=== PATIENT | male | born 1965 | race Caucasian/White ===

== ENCOUNTER 2023-01-11 21:14 | Observation (INO) | payer MEDICAID, SELFPAY ==
[2023-01-11] VITALS (18 sets, daily range): BP systolic 128–179; BP diastolic 99–136; PULSE 110–167; RESP 16–34; TEMP 37.3–39.4; O2SAT 87–97
--- NOTE | 2023-01-11 21:16 | ED.GENADUL_ITS ---
Discharge Plan Disposition Patient Disposition: Admit to [facility] Discharge Details Clinical Impression: Acute lactic acidosis, Skin necrosis, Abscess of left arm, Abscess of right hand, Erythematous rash, Hyponatremia, Elevated LFTs, Hypoalbuminemia, Elevated INR, Thrombocytopenia, Acute respiratory failure with hypoxia Primary Care Provider: Conchita Parra ED Provider: Yoshi aCmpoverde [facility] General Date/Time Provider Initiated Documentation: 01/11/23 21:16 . HPI Narrative: HPI This is a 57-year-old annyd-hnol-vmemxsuf male with history of diabetes and hyperlipidemia arrived to the emergency department via private vehicle in the setting of an open sore on his left hand and a second open sore on his right hand. Patient reports that he initially went to his physician in [place] on 12/30/2022. He was having fevers. He subsequently started metformin, atorvastatin, and omeprazole. He noticed a blister on his left forearm and attempted to drain it himself. It subsequently began oozing. He also says that he bumped his right hand and developed a boil. He did not attempt to drain his right hand. He is concerned that he is having an allergic reaction. He denies routine alcohol but is a daily tobacco user. Last week he did have some epigastric discomfort but this has improved. Is having no chest pain. No shortness of breath. No dysuria. No frequency. No prior history of similar symptoms. Exam General: Well-appearing in no acute distress speaking in complete sentences. Head: Normocephalic, atraumatic. Eye: Extraocular eye movements intact. No conjunctival injection. No scleral icterus. Ear, nose, mouth, throat: Grossly normal inspection. Normal voice, handling secretions normally. No signs of mucositis. Moist mucous membranes. Neck: Trachea midline. Cardiovascular: Well-perfused distal extremities. Rapid regular rate Respiratory: Nonlabored respiration. Clear lungs bilaterally Gastrointestinal: Nondistended abdomen. Soft nontender Musculoskeletal: No edema. Moving all 4 extremities spontaneously. Skin: Patient has 2 lesions 1 each on his bilateral upper extremities. Left upper extremity: On the dorsal surface of the patient's proximal left forearm there is an approximately 4-1/2 cm x 3-1/2 cm abscess with surrounding necrotic tissue and a thin erythematous margin as shown in the photo follows: Distal to this confluent abscess there are mildly erythematous papules. Right hand: On the dorsal webspace of the right hand between the thumb and at the base of the right index finger there is an approximately 2 x 2 centimeter necrotic and swollen area. patient has an intact 2+ right radial pulse. Cap refill less than 2 seconds in the right fingertips. Sensation motor function intact in the right hand across the radial, median and ulnar nerve distributions of the right hand. Photo of right hand necrotic abscesses follows: On the patient's neck chest and back there is a confluent erythematous rash consistent of plaques that is blanching as shown in the photo follows: Neurologic: Alert and appropriate, no apparent acute deficits. Psychiatric: Mood and manner are appropriate. Grooming and personal hygiene are appropriate. MDM This is a chronically ill appearing 57-year-old normothermic but tachycardic qlamg-zjer-ndanhyfi male with left upper extremity abscess with surrounding necrotic area along with right hand fluctuance concerning for systemic infection in the setting of fevers and possible melanoma versus deeper space infection given surrounding necrosis. A wound culture has been sent to the patient's left arm abscess. Patient has not recently traveled to suggest zoonotic infection. 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 Patient does not have sex with multiple partners nor sex with men low certainly his presentation could represent new onset HIV so we will send HIV screening labs. Patient has not had contact with animals to suggest increased risk for tularemia. Differential for the patient's confluent erythematous blanching patches include erythema multiforme so we will send tick panel, sarcoidosis, exanthematous drug reaction. Patient is quite uncomfortable and so I am concerned for the possibility of necrotizing soft tissue infection. We will also add on clindamycin for toxin in addition in addition to piperacillin/tazobactam and vancomycin. No bullae to suggest Pike-Denys's nor TEM and no mucosal involvement. Presentation could also represent Hodgkin's lymphoma so we will check CBC. Patient has not recently been initiated on warfarin to suggest warfarin skin necrosis secondary to protein C and S deficiencies. We will obtain a urinalysis to assess for proteinuria. Induced from will provide 500 cc of crystalloid. 10:20 PM I spoke with Dr. Felix from general surgery who felt that the patient would benefit from a washout in the morning. We will keep patient n.p.o. Dr. Felix will place orders for hospitalization. 10:32 PM Lactic acidosis with a serum lactate of 1.9 mmol/L. Normal reassuring magnesium. Elevated INR at 1.5. Given elevated INR new onset malignancy is certainly a possibility. 10:45 PM Comprehensive metabolic panel showing mild hyponatremia. Normal renal function. Mild hyperglycemia. No anion gap. Not consistent with DKA. Hypoalbuminemia. Mildly elevated LFTs. Normal bilirubin. Normal calcium. Patient is not in septic shock so I did not repeat a lactate. 11:[address] on my preliminary interpretation does not show any obvious subcutaneous gas. CBC showing no leukocytosis. Mild normocytic anemia. Significant thrombocytope sumit with platelet count of 45 K.We will complete a CT chest abdomen pelvis without contrast to assess for the possibility of malignancy. I advised patient of plan for hospitalization. He did not become tachycardic and had had a coughing spell. We repeat a temperature which was 99.6 ?F. I signed patient out to my colleague, Dr. Brittney Bryant. His oxygen level is also 88% on room air. He is a smoker and has been coughing. We will provide 1 g of acetaminophen. Given concern for PE given oxygen saturation of 86% on tachycardia we will plan on placing the patient on 2 L nasal cannula. I have also ordered a CT angiogram of the patient's chest and a CT with contrast of his abdomen and pelvis to assess for PE and malignancy respectively. Chronic conditions affecting the care of the patient: Diabetes hyperlipidemia History obtained from an outside historian: N/A External record review: No [facility] EMR records [Diagnostic interpretations performed by me:] [Per my independent interpretation chest x-ray shows:] Concern for possible widened mediastinum and mediastinal lymphadenopathy for whi ch patient will undergo CT chest Medications: Antibiotics Social determinants of health affecting disposition: N/A Management discussed with: Dr. Felix general surgery Treatment/interventions considered: N/A Response to therapies provided: N/A [facility] All Active Problems (Updated 01/11/23 @ 23:45 by Yoshi Campoverde MD) Acute lactic acidosis (Acute) Skin necrosis (Acute) Abscess of left arm (Acute) Abscess of right hand (Acute) Erythematous rash (Acute) Hyponatremia (Acute) Elevated LFTs (Acute) Hypoalbuminemia (Acute) Elevated INR (Acute) Thrombocytopenia (Chronic) Acute respiratory failure with hypoxia (Acute) Social History Smoking/Tobacco Use Status: Current every day Smoking risk assessment performed?: Yes Alcohol Intake: current Alcohol Intake frequency: holidays/special occasions only Substance use type: does not use Do you feel safe at home: Yes Do you feel safe in your relationship?: Yes
--- OUTSIDE RECORDS SUMMARY | 2023-01-11 21:27 | XMS_ITS | Continuity of Care Document ---
Author Name Unknown Organization [facility] Address [address] [place] [address] [address] Care Court Interpreter Name Role Phone Conchita Parra Primary Care Physician [phone] Encounter [facility] Date(s): 01/08/23 - 01/09/23 [facility] [address] [place] [address] Discharge Disposition: Home or Self Care Attending Physician: Chris Mayen MD Admitting Physician: Chris Mayen MD Allergies, Adverse Reactions, Alerts No Known Medication Allergies Assessment and Plan Future Appointments Diagnostic Tests Pending * Blood Culture 01/08/23 * Blood Culture 01/08/23 * Generic Orderable [facility] 01/08/23 * Cytomegalovirus (CMV) DNA RT PCR, P [place] 01/09/23 * Cytomegalovirus Abs, IgM & IgG, S [place] 01/09/23 Future Scheduled Tests Laboratory* Fibrinogen Level 01/08/23 * PT/ INR 01/08/23 * Jackie-Abbasi Virus (EBV) PCR, Varies [place] 01/07/23 * Sputum Culture 01/07/23 * Urinalysis with Micro if Indicated and Culture if Indicated 12/28/22 * Pathology Smear Consult 01/08/23 Radiology* XR Chest 2 Views 12/28/22 * CT Chest/Abd/Pelvis w/ Contrast 12/28/22 Functional Status 01/08/23 Recent Travel History No recent travel Other exposure to Infectious Disease Non e Immunizations Given and Recorded Vaccine Date Status Refusal Reason zoster vaccine, inactivated 03/26/22 Given SARS-CoV-2 mRNA (tozinameran 12y+) bival 03/26/22 Given SARS-CoV-2 (COVID-19) mRNA-1273 vaccine 03/17/21 R ecorded SARS-CoV-2 (COVID-19) mRNA-1273 vaccine 08/21/20 R ecorded SARS-CoV-2 (COVID-19) mRNA-1273 vaccine 07/25/20 R ecorded Medications Albuterol (Eqv-ProAir HFA) 90 mcg/inh inhalation aerosol 2 puffs, Inhale, every 4 hr, PRN shortness of breath, # 1 EA, 2 Refill(s), Pharmacy: [facility] #[id number] Start Date: 12/28/22 Status: Ordered atorvastatin 10 mg oral tablet 10 mg = 1 tab, Oral, Daily, # 90 tab, 2 Refill(s), Pharmacy: [place] [address], 163, cm, 12/28/22 18:59:00 EDT, Height/Length Dosing, 96.25, kg, 12/28/22 19:00:00 EDT, Weight Dosing Start Date: 12/31/22 Status: Ordered doxycycline hyclate 100 mg oral delayed release tablet 100 mg = 1 tab, Oral, BID, X 21 days, # 42 tab, 0 Refill(s), 01/30/23 2:28:00 AM CDT, Pharmacy: [place] [address], 163, cm, 01/08/23 21:36:00 EDT, Height/Length Dosing, 95, kg, 01/08/23 21:36:00 EDT, Weight Dosing Start Date: 01/09/23 Stop Date: 01/30/23 Status: Ordered glucometer glucometer, Once a day testing NIDDM E11.9, Supply, See instructions, # 1 EA, 0 Refill(s), Pharmacy: [place] [address] Start Date: 01/01/23 Status: Ordered lancets lancets, one a day testing NIDDM E11.9, Supply, See instructions, # 100 EA, 3 Refill(s), Pharmacy: [place] [facility] [address] Start Date: 01/05/23 Status: Ordered metFORMIN 500 mg oral tablet 500 mg = 1 tab, Oral, BID, with meals, # 180 tab, 2 Refill(s), Pharmacy: [place] [address], 163, cm, 12/28/22 18:59:00 EDT, Height/Length Dosing, 96.25, kg, 12/28/22 19:00:00 EDT, Weight Dosing Start Date: 12/31/22 Status: Ordered omeprazole 40 mg oral delayed release capsule 40 mg = 1 cap, Oral, Daily, # 30 cap, 2 Refill(s), Pharmacy: [facility] #[id number] Start Date: 12/28/22 Status: Ordered test strips test strips, Once a day testing NIDDM E11.9, Supply, See instructions, # 100 EA, 3 Refill(s), Pharmacy: [id number] Start Date: 01/01/23 Status: Ordered Problem List Condition Confirmation Course Effective Dates Status H ealth Status Informant Abdominal pain Confirmed Active Anemia Confirmed Active Chest pain 1 Confirmed Active Dyslipidemia Confirmed Active Dyspnea on exertion Confirmed Active Early satiety Confirmed Active Hypertension Confirmed Active Elevated liver enzymes Confirmed Active Nicotine dependence Confirmed Active Night sweats Confirmed Active Obesity Confirmed Active Overactive bladder 2 Confirmed Active Pain in lower limb 3 Confirmed Active Fever of unknown origin Confirmed Active T2DM (type 2 diabetes mellitus) Confirmed Active Unintentional weight loss Confirmed Active 1 Intermittent; per new patient packet. 2Frequent urge; per new patient packet. 3Not specified; per new patient packet. Results Laboratory List Name Date Urinalysis with Micro if Indicated and C ulture if Indicated 01/09/23 .Manual Differential (NCTY) 01/08/23 Bilirubin Direct 01/08/23 C-Reactive Protein (CRP) 01/08/23 CBC w/ Diff 01/08/23 Comprehensive Metabolic Panel (CMP) 01/08 Creatine Kinase (CK) 01/08/23 D-Dimer 01/08/23 Ferritin 01/08/23 Fibrinogen Level 01/08/23 GGT 01/08/23 Lactic Acid 01/08/23 Lipase Level 01/08/23 PT/ INR 01/08/23 PTT 01/08/23 Procalcitonin 01/08/23 Sedimentation Rate (ESR) 01/08/23 Most recent to oldest [Reference Range]: 1 WBC [5.0-10.0 x10^3/mcL] 7.5 x10^3/mcL (01/08/23 10:25 PM) RBC [4.6-6.0 x10^6/mcL] 3.8 x10^6/mcL *LOW* (01/08/23 10:25 PM) Segs Man [40-75 %] 67 % (01/08/23 10:25 PM) Lymph Man [20-50 %] 20 % (01/08/23 10:25 PM) [place] Man [2-15 %] 3 % (01/08/23 10:25 PM) Eos Man [1-6 %] 1 % (01/08/23 10:25 PM) Prothrombin Time [9.0-11.0 seconds] 15.0 seconds *HI* (01/08/23 10: PM) INR 1.5 1 *NA* (01/08/23 10: PM) BUN [7-18 mg/dL] 20 mg/dL *HI* (01/08/23 10: PM) UA Color Yellow (01/09/23 12:32 AM) Glucose Level [74-106 mg/dL] 149 mg/dL *HI* (01/08/23 10: PM) Lymph, Atyp Man 1 % *NA* (01/08/23 10: PM) Potassium Level [3.5-5.1 mmol/L] 4.1 mmo l/L (01/08/23 10: PM) MCV [80.0-96.0 fL] 90.5 fL (01/08/23 10:25 PM) UA Urobilinogen Positive *ABN* (01/09/23 12:32 AM) RBC Morph Abnormal (01/08/23 10: PM) UA Bili [Negative] Negative (01/09/23 12:32 AM) CRP [<=10.0 mg/L] 250.0 mg/L *HI* (01/08/23 10: PM) UA Ketones Negative (01/09/23 12:32 AM) AST [15-37 unit/L] 148 unit/L *HI* (01/08/23 10:25 PM) ALT [16-63 unit/L] 262 unit/L *HI* (01/08/23 10: PM) MCHC [31.0-35.0 g/dL] 33.9 g/dL (01/08/23 10:25 PM) Sodium Level [136-145 mmol/L] 130 mmol/L *LOW* (01/08/23 10: PM) UA Leuk Est Negative (01/09/23 12:32 AM) UA Nitrite Negative (01/09/23 12:32 AM) UA Glucose [Negative] Negative (01/09/23 12:32 AM) Hct [41.0-51.0 %] 34.2 % *LOW* (01/08/23 10:25 PM) Lipase Level [16-77 unit/L] 25 unit/L 2 (01/08/23 10:25 PM) Partial Thromboplastin Time [22-35 secon ds] 26 seconds 3 (01/08/23 10:25 PM) Calcium Level [8.5-10.1 mg/dL] 8.2 mg/dL *LOW* (01/08/23 10:25 PM) Albumin Level [3.4-5.0 g/dL] 2.3 g/dL *LOW* (01/08/23 10:25 PM) Protein Total [6.4-8.2 g/dL] 6.9 g/dL (01/08/23 10:25 PM) UA Protein Negative (01/09/23 12:32 AM) MCH [26.0-32.0 pg] 30.7 pg (01/08/23 10:25 PM) Bilirubin Total [0.2-1.0 mg/dL] 0.7 mg/d L (01/08/23 10:25 PM) Hgb [14.0-18.0 g/dL] 11.6 g/dL *LOW* (01/08/23 10:25 PM) NRBC Man 1 % *NA* (01/08/23 10:25 PM) Alk Phos [46-146 unit/L] 82 unit/L (01/08/23 10:25 PM) UA Blood Negative (01/09/23 12:32 AM) Band Man [0-5 %] 1 % (01/08/23 10:25 PM) UA Spec Grav 1.010 *NA* (01/09/23 12:32 AM) Ferritin Level [26-388 ng/mL] 4610 ng/mL *HI* (01/08/23 10:25 PM) Polychrom Rare (01/08/23 10:25 PM) Bilirubin Direct [0.00-0.20 mg/dL] 0.28 mg/dL *HI* (01/08/23 10:25 PM) Platelets [130-450 x10^3/mcL] 55 x10^3/m cL *LOW* (01/08/23 10:25 PM) CO2 [21-32 mmol/L] 27 mmol/L (01/08/23 10:25 PM) Lactic Acid Lvl [0.7-2.0 mmol/L] 1.3 mmo l/L (01/08/23 10:25 PM) GGT [15-85 unit/L] 146 unit/L *HI* (01/08/23 10:25 PM) UA pH 5.5 *NA* (01/09/23 12:32 AM) eGFR Non-AA [>=60] 77 (01/08/23 10:25 PM) eGFR AA [>=60] 77 (01/08/23 10:25 PM) Fibrinogen Level [200-400 mg/dL] 294 mg/ dL (01/08/23 10:25 PM) UA Appear Clear (01/09/23 12:32 AM) Chloride Level [98-107 mmol/L] 94 mmol/L *LOW* (01/08/23 10:25 PM) Procalcitonin [0.00-0.50 ng/mL] 0.54 ng/ mL *HI* (01/08/23 10:25 PM) RDW-CV [11.5-14.5 %] 14.1 % (01/08/23 10:25 PM) Smudge Cells Small (01/08/23 10:25 PM) Slide Review Man Diff (01/08/23 10:25 PM) Abs Neut Man 5.1 x10^3/mcL *NA* (01/08/23 10:25 PM) Immature Cells 7 *NA* (01/08/23 10:25 PM) Creatinine Level [0.70-1.30 mg/dL] 1.11 mg/dL (01/08/23 10:25 PM) Baso Man [0-1 %] 0 % (01/08/23 10:25 PM) D Dimer, (Quant.) [0.00-0.50 mg/L] >30.0 0 mg/L 4, 5 *HI* (01/08/23 10:25 PM) CK [39-308 unit/L] 42 unit/L (01/08/23 10:25 PM) ESR, Westergren [0-20 mm/hr] 33 mm/hr *HI* (01/08/23 10:25 PM) 1Interpretive Data: INR 2-2.5 Prophylaxis: Short term DVT INR 2-3 Prophylaxis: hip and femur surgery Therapy: DVT (3 mos) PE (3-6 mos) 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 emb post ME Mitral Stenosis with emboli (vine fruit farming supervisor) Tissue prosthetic valves (3 mos min) INR 3-4.5 Therapy: recurrent DVT, PE (vine fruit farming supervisor) Prosthetic heart valves (vine fruit farming supervisor) 2Interpretive Data: Effective 01/29/22, [facility] has switched to a revised Lipase test.Note new ReferenceRange. 3Interpretive Data: NEW reagent effective 01/13/2022- Therapeutic Heparin Reference Range (0.3-0.7 effective anti-Xa level) 40-70 seconds Range (0.3-0.7 effective anti-Xa level) 40-70 seconds NEW reagent effective 01/13/2022- Therapeutic Heparin Reference Range (0.3-0.7 effective anti-Xa level) 40-70 seconds. 4Result Comment: Manual entry error 5Interpretive Data: Exclusion of PE: Effective December 30, 2011 a new D-Dimer assay [RadMitANCE] is being implemented, this test has a new reference range <0.50 mg/L FEU. This assay was evaluated in a multi-center study to validate the exclusion of PE using fresh specimens collected from 701 consecutive patients presenting in the ED with suspected PE. Study patients were evaluated using the Wells' rules to estimate high, moderate or low probability of PE, a D-Dimer result of <0.50 mg/L FEU was considered negative and a D-Dimer result >/= 0.50 was considered positive for PE. Vital Signs Most recent to oldest [Reference Range]: 1 2 3 Temperature Temporal Artery [36-38 Deg C] 36.9 Deg C (01/09/23 3:01 AM) 37.6 Deg C (01/08/23 9:31 PM) Temperature Temporal Artery (DegF) [97.3-100 Deg F] 98.42 Deg F (01/09/23 3:01 AM) Peripheral Pulse Rate [60-100 bpm] 80 bpm (01/09/23 3:01 AM) 82 bpm (01/09/23 2:37 AM) 78 bpm (01/09/23 2:06 AM) Respiratory Rate [12-24 br/min] 18 br/min (01/08/23 11:13 PM) 18 br/min (01/08/23 10:34 PM) 22 br/min (01/08/23 9:31 PM) Blood Pressure [90-140/60-90 mmHg] 118/69mmHg (01/09/23 3:01 AM) 103/73mmHg (01/09/23 2:37 AM) 97/55mmHg (01/09/23 1:09 AM) Weight Dosing 95.00 kg (01/08/23 9:36 PM) Weight Estimated 95.00 kg (01/08/23 9:31 PM) Height/Length Dosing 163.000 cm (01/08/23 9:36 PM) Height/Length Estimated 163.000 cm (01/08/23 9:31 PM) Social History Social History Type Response Tobacco Current everyday tob acco user Tobacco Use:. 1/2 to 1 packs per day per day. Sex Male EKG study * Event Display: Telemetry Strips Please click on link to view image. Physician Emergency department Note * Chris Mayen MD: PERFORM Event Display: ED Note Physician Authored Date: [id number] MARIA INES YAO :1965 Age:57 years Sex:Male Visit Date:01/08/2023 Primary Care Physician: Conchita Parra RESEARCH NUTRITIONIST HPI 57-year-old obese male smoker with a history of DM II (metformin), HLD (atorvastatin), GERD, and RAD (as needed albuterol) presents for evaluation of approximately 3 weeks of daily fevers that began at approximately 3 PM and apparently break overnight but are NSAID responsive, generalized malaise, right upper quadrant pain, 30 pounds weight loss, and now a rash palm and sole sparing of several days that began initially as a pimple-like lesion on his left forearm before progressing to a necroticulcer with some involvement on the right hand now with diffuse, predominantly anterior chest involvement and mild fascial involvement. 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 While the patient goes camping, he is not otherwise an avid outdoorsman, no gardening, fish tanks, IVDU, back pain, headache, or travel. Patient denies change in stool caliber or color. No apparent change in urination.Drinks 1-2 drinks of alcohol weekly. ?? Recent labs notable for: Date WBC Hb PLT Na K AST ALT ESR CRP D-dimer 09/23/2021 6.9 16.7 222 137 4.5 ? 12/28/2022 6.3 13.7 132 137 4.1 41 109 ? >30 01/08/2023 7.2 12.4 63 132 4.3 126 267 37 245.2 >30 ? M/S/F/SocHx notable for: please see HPI; remainder reviewed with patient and in chart.? ROS: Negative constitutional, eye, cardiovascular, pulmonary, GI, , MSK, skin, neurologic, psychiatric, endocrine unless noted in the HPI. ?? Exam HR 111, RR 22, BP 151/73, T 37.1?C, SaO2 92% on room air.?? Gen:??Pleasant, non-toxic appearing, resting comfortably. HEENT: NC, AT, PEERL, EOMI. Resp: Clear to auscultation bilaterally, normal work of breathing, no accessory muscle usage. Card: Regular rate and rhythm with no murmurs, rubs, or gallops, extremities warm and well perfused.?? GI: Non-tender to palpation throughout all quadrants, non-distended, no rebound or guarding. : No suprapubic tenderness to palpation. MSK: No visible deformities, strength and tone without visually appreciable deficit. Skin: Normal color with no visible lesions. Neuro: alert and oriented?3, no facial asymmetry, vision and hearing WNL. Psych: Mood and affect appropriate. ?? Labs?? WBC 7.5, Hb 11.6, platelets 55, lactic acid 1.3.?? Sodium 130, potassium 4.1, AST 148, ALT 262, lipase 25, BUN 20, glucose 149, GGT 146, ferritin 4610. CRP 250, CK 42, procalcitonin 0.54, ESR 33. PT 15.0, PT INR 1.5, PTT 26, fibrinogen 294, D-dimer >30. UA - negative nitrate, negative leukocyte Esterase, positive urobilinogen. ?? Imaging CXR: No acute cardiopulmonary abnormality.? CT chest/abdomen/pelvis: mild atypical pneumonia and bronchial inflammation/mucus considered. No abscess or acute inflammatory abnormality observed. No bowel obstruction. Numerous chronic findings asdescribed. Multiple sites of spinal canal stenosis and neuronal foraminal narrowing are present in t he lumbar spine. ?? MDM Previous chart, nursing note, labs, imaging, and vitals reviewed.?? A:??57-year-old obese male smoker with a history of DM II (metformin), HLD (atorvastatin), GERD, and RAD (as needed albuterol) presents for evaluation of approximately 3 weeks of daily fevers that began at approximately 3 PM and apparently break overnight but are NSAID responsive, generalized malaise, right upper quadrant pain, 30 pounds weight loss, and now a rash palm and sole sparing of several days that began initially as a pimple-like lesion on his left forearm before progressing to a necrotic ulcer with some involvement on the right hand now with diffuse, predominantly anterior chest involvement and mild fascial involvement.? Evaluation: the patient??has??a broad differential including tickborne diseases, viral infection, malignancy, vasculitis, malignancy with para-neoplastic syndrome, and critical electrolyte and/or hematologic abnormalities. ?? At the present time, favor a tickborne infection, however this is speculative and based on patientsgeographic risk factors, fevers, mild thrombocytopenia as well as mild liver enzyme elevations.??Tickborne, is likely a non-Rickettsii, rickettsial infection (e.g. Rickettsia Parkerri). Alternativelythe patient may have any number of viral etiologies or potentially an infectious or paraneoplastic syndrome.??CT chest/abdomen/pelvis. While the patient has multiple abnormalities as laboratory testing, none of these appear to be critical at the present time. The patient is elevated to gather is not felt to represent the but was rather ordered to evaluate for acute inflammation and clotting cascade breakdown products. ?? ED Course:?1 g acetaminophen IV and 1 L NS given following initial evaluation. Patient with significant symptomatic improvement. ?Initial laboratory studies consistent with the most recent trend of worsening anemia, thrombocytopenia, and elevated inflammatory markers, concern exists for a rickettsial infection given thenecrotic ulcers, however this is tentative at the present time. I discussed the case with the infectious disease physician on-call at [facility], will add on a CT chest/abdomen/pelvis as well as CMV and EBVtesting. Patient may follow-up with infectious disease at [facility] other outpatient clinic, acute follow-up today is on , patient's information was provided to [facility] for follow-up as well. ?100 mg p.o. doxycycline given in the ER. ?? Disposition: discharged with outpatient follow-up recommended, or ask for doxycycline provided. ?? Impression: fever, rash. ?? (please reference below for remainder of encounter information) ?? Dr. Acharya?? Electronically Signed on 01/09/23 03:27 AM Chris Mayen MD Emergency department Discharge instructions * Chris Mayen MD: PERFORM Event Display: ED Discharge Information Authored Date: [id number] MARIA INES YAO :1965 Age:57 years Sex:Male Visit Date:01/08/2023 Primary Care Physician: Conchita Parra NP Discharge Instructions We would like to thank you for allowing us to assist you with your healthcare needs. The following includes patient education materials and information regarding your injury/illness. ?? You were seen at [facility] for evaluation for evaluation of??a fever and rash. The time of your valuation the cause of your symptoms is unclear. There is a moderate possibility that yoursymptoms are due to a tick infection and you have been prescribed doxycycline that you should take twice daily for the next 21 days. Please follow up by phone on Wednesday with the [facility] infectious disease clinic urgent follow-up clinic. Please call?on Wednesday to schedule this follow-up.??Please read and follow all of the instructions below. ?? Please follow up with your primary care physician??in 3-4 days repeat evaluation for the care is needed. When calling for follow-up care, please make the office aware that this follow-up is from yourrecent emergency room visit.? Your care today was limited to identifying and treating emergent medical problems only. Many peoplehave subtle differences in their test results that require follow up with their outpatient physician(s) to correctly determine if this represents a normal variation or concerning abnormality with respect to your specific health.??The care given to you today was limited to identifying and treating emergent medical problems - you need to request a copy of all of your medical records from today's visit and follow up with your outpatient physician(s) to review both today's visit and your overall health. If you have any new symptoms or if you are at all concerned about your health please return immediately to the emergency department. ?? Prescriptions: If you are uninsured or have financial difficulties with filling your prescription(s), you may consider using a free pharmacy discount service such as [employer] ([employer]) or [employer] ([employer]). These services allow you to search for a medication on your phone (or computer) and obtain a coupon that usually has a significant discount from the list wade at a pharmacy. Your physician does not have a financial relationship with either of these services. You may also wish to speak with your physician to determine if lower cost prescriptions are possible. ? Discharge Vitals Temperature??(Temporal Artery) 98.4 ??F (36.9 ??C) Heart Rate??(Peripheral) 80 Respiratory Rate?? 18 Blood Pressure?? 118/69?? Height?? 64.17 in (163.000 cm) Weight??(Estimated) 209.48 lb (95.00 kg) Allergies No Known Medication Allergies What to Do Next Upcoming Scheduled Appointments Wednesday 9:00 AM EDT ?? With: Parish Garcia MD Where: [facility] [address] [place] [address] Status: Confirmed 2022 1:20 PM EDT ?? With: Conchita Parra NP Where: [facility] [place] [address] [place] [address] Status: Confirmed You were treated today on an emergency basis; it may be cantu to contact your primary care provider to notify them of your visit today. You may have been referred to your regular doctor or a specialist, please follow up as instructed. If your condition worsens or you can't get in to see the doctor, contact the Emergency Department. Medications What How Much When Why Instructions Next Dose New doxycycline (doxycycline hyclate 100 mg oral delayed release tablet) 1 tab Oral (given by mouth) 2 times a day Duration: 21 Days Pickup at [facility] Unchanged albuterol (Albuterol (Eqv-ProAir HFA) 90 mcg/ inh inhalation aerosol) 2 Puffs Inhale (breathe in) Every 4 hours as needed for shortness of breath Unchanged atorvastatin (atorvastatin 10 mg oral tablet) 1 tab Oral (given by mouth) Every day Unchanged Durable Medical Equipment for Prescription (glucometer) See instructions T2DM (type 2 diabetes mellitus) Once a day testing NIDDM E11.9 ?? Unchanged Durable Medical Equipment for Prescription (lancets) See instructions T2DM (type 2 diabetes mellitus) one a day testing NIDDM E11.9 ?? Unchanged Durable Medical Equipment for Prescription (test strips) See instructions T2DM (type 2 diabetes mellitus) Once a day testing NIDDM E11.9 ?? Unchanged metFORMIN (metFORMIN 500 mg oral tablet) 1 tab Oral (given by mouth) 2 times a day with meals ?? Unchanged omeprazole (omeprazole 40 mg oral delayed release capsule) 1 Capsules Oral (given by mouth) Every day Pharmacy Information [id number]: [address] [place] [address] [phone] Tests Performed Medications and Immunizations Administered Given acetaminophen, 1000 mg, IV Piggyback doxycycline monohydrate, 100 mg, Oral NS bolus, 1000 mL, IV Piggyback Lab Test Name Test Result Date/Time WBC 7.5 x10^3/mcL 01/08/2023 22:25 EDT RBC 3.8 x10^6/mcL 01/08/2023 22:25 EDT Hgb 11.6 g/dL 01/08/2023 22:25 EDT Hct 34.2 % 01/08/2023 22:25 EDT MCV 90.5 fL 01/08/2023 22:25 EDT MCH 30.7 pg 01/08/2023 22:25 EDT MCHC 33.9 g/dL 01/08/2023 22:25 EDT RDW-CV 14.1 % 01/08/2023 22:25 EDT Platelets 55 x10^3/mcL 01/08/2023 22:25 EDT Segs Man 67 % 01/08/2023 22:25 EDT Lymph Man 20 % 01/08/2023 22:25 EDT [place] Man 3 % 01/08/2023 22:25 EDT Eos Man 1 % 01/08/2023 22:25 EDT Baso Man 0 % 01/08/2023 22:25 EDT Band Man 1 % 01/08/2023 22:25 EDT Lymph, Atyp Man 1 % 01/08/2023 22:25 EDT NRBC Man 1 % 01/08/2023 22:25 EDT Abs Neut Man 5.1 x10^3/mcL 01/08/2023 22:25 EDT Smudge Cells Small 01/08/2023 22:25 EDT RBC Morph Abnormal 01/08/2023 22:25 EDT Immature Cells 7 01/08/2023 22:25 EDT Polychrom Rare 01/08/2023 22:25 EDT Slide Review Man Diff 01/08/2023 22:25 EDT ESR, Westergren 33 mm/hr 01/08/2023 22:25 EDT Prothrombin Time 15.0 seconds 01/08/2023 22:25 EDT INR 1.5 01/08/2023 22:25 EDT Partial Thromboplastin Time 26 seconds 01/08/2023 22:25 EDT Fibrinogen Level 294 mg/dL 01/08/2023 22:25 EDT D Dimer, (Quant.) >30.00 mg/L 01/08/2023 22:25 EDT Sodium Level 130 mmol/L 01/08/2023 22:25 EDT Potassium Level 4.1 mmol/L 01/08/2023 22:25 EDT Chloride Level 94 mmol/L 01/08/2023 22:25 EDT CO2 27 mmol/L 01/08/2023 22:25 EDT Alk Phos 82 unit/L 01/08/2023 22:25 EDT AST 148 unit/L 01/08/2023 22:25 EDT ALT 262 unit/L 01/08/2023 22:25 EDT BUN 20 mg/dL 01/08/2023 22:25 EDT Glucose Level 149 mg/dL 01/08/2023 22:25 EDT Creatinine Level 1.11 mg/dL 01/08/2023 22:25 EDT eGFR AA 77 01/08/2023 22:25 EDT eGFR Non-AA 77 01/08/2023 22:25 EDT Calcium Level 8.2 mg/dL 01/08/2023 22:25 EDT Protein Total 6.9 g/dL 01/08/2023 22:25 EDT Albumin Level 2.3 g/dL 01/08/2023 22:25 EDT Bilirubin Total 0.7 mg/dL 01/08/2023 22:25 EDT Bilirubin Direct 0.28 mg/dL 01/08/2023 22:25 EDT GGT 146 unit/L 01/08/2023 22:25 EDT Ferritin Level 4610 ng/mL 01/08/2023 22:25 EDT Lactic Acid Lvl 1.3 mmol/L 01/08/2023 22:25 EDT Lipase Level 25 unit/L 01/08/2023 22:25 EDT CRP 250.0 mg/L 01/08/2023 22:25 EDT CK 42 unit/L 01/08/2023 22:25 EDT Procalcitonin 0.54 ng/mL 01/08/2023 22:25 EDT UA Color YELLOW. 01/09/2023 00:32 EDT UA Appear CLEAR. 01/09/2023 00:32 EDT UA Glucose NEGATIVE 01/09/2023 00:32 EDT UA Bili NEGATIVE 01/09/2023 00:32 EDT UA Ketones NEGATIVE 01/09/2023 00:32 EDT UA Spec Grav 1.010 01/09/2023 00:32 EDT UA Blood NEGATIVE 01/09/2023 00:32 EDT UA pH 5.5 01/09/2023 00:32 EDT UA Protein NEGATIVE 01/09/2023 00:32 EDT UA Urobilinogen 1.0 Uro 01/09/2023 00:32 EDT UA Nitrite NEGATIVE 01/09/2023 00:32 EDT UA Leuk Est NEGATIVE 01/09/2023 00:32 EDT Patient/Bill Checker Signature Patient Name:MAXIMILIANMARIA INES GRANADOS Masood I have received this information and my questions have been answered. Patient/Bill Checker Name: Patient/Bill Checker Signature: Relationship to Patient: Witness Name/Signature: Date: Electronically Signed on: 01/09/2023 03:29 EDTSigned by:RIAZ Emergency department Note * Carmita Rey H: PERFORM Event Display: ED Notes Authored Date: [id number] Patient Care team information Care Team Personnel Name: Conchita Parra NP Position: Physician Member Role: Informed Provider Address: Address: [place] [address]- Name: Elio Cross RN Position: Nurse Member Role: ED Nurse Name: Lalit Mccarthy RN Position: Nurse Member Role: ED Nurse Name: Chris Mayen MD Position: Physician Member Role: Attending Physician Care Team Related Persons Name: NILDA TOM Address: [facility] [address] [facility] [id number] Address: Home [address] [place], [place] [id number] Address: [address]ailing [address] [place] [phone]
--- OUTSIDE RECORDS SUMMARY | 2023-01-11 21:27 | XMS_ITS | Continuity of Care Document ---
Author Name Unknown Organization [facility] Address [address] [place] [address] Care Team Providers Care Centura Technical Lead Senior Developer Name Role Phone Conchita Parra Primary Care Physician [phone] [facility] 12/28/22 [facility] [address] [place] [address] Discharge Disposition: Home Allergies, Adverse Reactions, Alerts No Known Medication Allergies Assessment and Plan Future Appointments Future Scheduled Tests Laboratory* Urinalysis with Micro if Indicated and Culture if Indicated 12/28/22 Radiology* XR Chest 2 Views 12/28/22 * CT Chest/Abd/Pelvis w/ Contrast 12/28/22 Immunizations Given and Recorded Vaccine Date Status [...] breath, # 1 EA, 2 Refill(s), Pharmacy: [facility] #[id number] Start Date: 12/28/22 Status: Ordered omeprazole 40 mg oral delayed release capsule 40 mg = 1 cap, Oral, Daily, # 30 cap, 2 Refill(s), Pharmacy: [facility] #[id number] Start Date: 12/28/22 Status: Ordered Problem List Condition Confirmation Course Effective Dates Status H ealth Status Informant Abdominal pain Confirmed Active Chest pain 1 Confirmed Active Dyslipidemia Confirmed Active Dyspnea 2 Confirmed Active Dyspnea on exertion Confirmed Active Early satiety Confirmed Active Hypertension Confirmed Active Immunization due Confirmed Active Nicotine dependence Confirmed Active Night sweats Confirmed Active Obesity Confirmed Active Overactive bladder 3 Confirmed Active Pain in lower limb 4 Confirmed Active Prediabetes Confirmed Active Fever of unknown origin Confirmed Active Visit for suture removal Confirmed Active Unintentional weight loss Confirmed Active 1 Intermittent; per new patient packet. 2 Intermittent; per new patient packet. 3Frequent urge; per new patient packet. 4Not specified; per new patient packet. Social History Social History Type Response Tobacco Current everyday tob acco user Tobacco Use:. 1/2 to 1 packs per day per day. Sex Male Patient Care team information Care Team Personnel Name: Conchita Parra NP Position: Physician Member Role: Primary Care Physician Address: Address: [address] Care Team Related Persons Name: TAE YAO Address: Home [facility] [place], [place] [id number]
--- OUTSIDE RECORDS SUMMARY | 2023-01-11 21:27 | XMS_ITS | Continuity of Care Document ---
Author Name Unknown Organization [facility] Address [address] [place] [address] Care Team Providers Care Investigation Specialist Name Role Phone Conchita Parra Primary Care Physician Encounter [facility] Date(s): 01/08/23 - 01/08/[address] [address] Encounter Diagnosis Anemia(Discharge Diagnosis) - 01/08/23 Discharge Disposition: Home or Self Care Attending Physician: Conchita Parra NP Admitting Physician: Conchita Parra NP Referring Physician: Conchita Parra DOOR WORKER Allergies, Adverse Reactions, Alerts No Known Medication Allergies Assessment and Plan Future Appointments Diagnostic Tests Pending * Protein Electrophoresis, S (SPEP) UV 01/08/23 * Acute Hepatitis Profile, S FRONTENAC 01/08/23 * Lyme Antibody UV 01/08/23 * QuantiFERON-TB Gold Plus, WB FRONTENAC 01/08/23 * Syphilis Serology UV 01/08/23 * Anti Nuclear Ab (REBECA), IFA UV 01/08/23 * Anaplasma and Babesia Testing by PCR, WB UV 01/08/23 * HIV 1/2 Ag and Ab, 4th Generation UV 01/08/23 * Blood Culture 01/08/23 * Jackie-Abbasi Virus Profile, S FRONTENAC 01/08/23 * Blood Culture 01/08/23 Future Scheduled Tests Laboratory* Fibrinogen Level 01/08/23 * PT/ INR 01/08/23 * Jackie-Abbasi Virus (EBV) PCR, Varies FRONTENAC 01/07/23 * Sputum Culture 01/07/23 * Urinalysis [...] breath, # 1 EA, 2 Refill(s), Pharmacy: [facility] #[id number] Start Date: 12/28/22 Status: Ordered atorvastatin 10 mg oral tablet 10 mg = 1 tab, Oral, Daily, # 90 tab, 2 Refill(s), Pharmacy: [facility] [id number], 163, cm, 12/28/22 18:59:00 EDT, Height/Length Dosing, 96.25, kg, 12/28/22 19:00:00 EDT, Weight Dosing Start Date: 12/31/22 Status: Ordered doxycycline hyclate 100 mg oral delayed release tablet 100 mg = 1 tab, Oral, BID, X 21 days, # 42 tab, 0 Refill(s), 01/30/23 2:28:00 AM CDT, Pharmacy: [facility] 415, 163, cm, 01/08/23 21:36:00 EDT, Height/Length Dosing, 95, kg, 01/08/23 21:36:00 EDT, Weight Dosing Start Date: 01/09/23 Stop Date: 01/30/23 Status: Ordered glucometer glucometer, Once a day testing NIDDM E11.9, Supply, See instructions, # 1 EA, 0 Refill(s), Pharmacy: [facility] 415 Start Date: 01/01/23 Status: Ordered lancets lancets, one a day testing NIDDM E11.9, Supply, See instructions, # 100 EA, 3 Refill(s), Pharmacy: [id number] Start Date: 01/05/23 Status: Ordered metFORMIN 500 mg oral tablet 500 mg = 1 tab, Oral, BID, with meals, # 180 tab, 2 Refill(s), Pharmacy: [facility] 415, 163, cm, 12/28/22 18:59:00 EDT, Height/Length Dosing, 96.25, kg, 12/28/22 19:00:00 EDT, Weight Dosing Start Date: 12/31/22 Status: Ordered omeprazole 40 mg oral delayed release capsule 40 mg = 1 cap, Oral, Daily, # 30 cap, 2 Refill(s), [id number] Start Date: 12/28/22 Status: Ordered test strips test strips, Once a day testing NIDDM E11.9, Supply, See instructions, # 100 EA, 3 Refill(s), Pharmacy: [facility] [id number] Start Date: 01/01/23 Status: Ordered Problem List [...] patient packet. Results Laboratory List Name Date C-Reactive Protein (CRP) 01/08/23 CBC w/ Diff 01/08/23 Comprehensive Metabolic Panel (CMP) 01/08 Ferritin 01/08/23 Iron Level and TIBC 01/08/23 SARS-CoV-2 (COVID-19)/Flu/RSV (GeneXpert ) 01/08/23 Sedimentation Rate (ESR) 01/08/23 .Manual Differential (NCTY) 01/08/23 Most recent to oldest [Reference Range]: 1 WBC [5.0-10.0 x10^3/mcL] 7.2 x10^3/mcL (01/08/23 1:53 PM) RBC [4.6-6.0 x10^6/mcL] 4.0 x10^6/mcL *LOW* (01/08/23 1:53 PM) Segs Man [40-75 %] 80 % *HI* (01/08/23 1:53 PM) Lymph Man [20-50 %] 18 % *LOW* (01/08/23 1:53 PM) [place] Man [2-15 %] 0 % *LOW* (01/08/23 1:53 PM) Eos Man [1-6 %] 0 % *LOW* (01/08/23 1:53 PM) BUN [7-18 mg/dL] 19 mg/dL *HI* (01/08/23 1:53 PM) Glucose Level [74-106 mg/dL] 120 mg/dL *HI* (01/08/23 1:53 PM) Potassium Level [3.5-5.1 mmol/L] 4.3 mmo l/L (01/08/23 1:53 PM) MCV [80.0-96.0 fL] 91.0 fL (01/08/23 1:53 PM) RBC Morph Normal (01/08/23 1:53 PM) CRP [<=10.0 mg/L] 245.2 mg/L *HI* (01/08/23 1:53 PM) AST [15-37 unit/L] 126 unit/L *HI* (01/08/23 1:53 PM) ALT [16-63 unit/L] 267 unit/L *HI* (01/08/23 1:53 PM) MCHC [31.0-35.0 g/dL] 34.3 g/dL (01/08/23 1:53 PM) Sodium Level [136-145 mmol/L] 132 mmol/L *LOW* (01/08/23 1:53 PM) Hct [41.0-51.0 %] 36.2 % *LOW* (01/08/23 1:53 PM) Calcium Level [8.5-10.1 mg/dL] 8.2 mg/dL *LOW* (01/08/23 1:53 PM) Albumin Level [3.4-5.0 g/dL] 2.4 g/dL *LOW* (01/08/23 1:53 PM) Protein Total [6.4-8.2 g/dL] 7.1 g/dL (01/08/23 1:53 PM) Iron Sat [20-55 %] 11 % *LOW* (01/08/23 1:53 PM) MCH [26.0-32.0 pg] 31.2 pg (01/08/23 1:53 PM) Bilirubin Total [0.2-1.0 mg/dL] 0.6 mg/d L (01/08/23 1:53 PM) Hgb [14.0-18.0 g/dL] 12.4 g/dL *LOW* (01/08/23 1:53 PM) Alk Phos [46-146 unit/L] 90 unit/L (01/08/23 1:53 PM) Band Man [0-5 %] 0 % (01/08/23 1:53 PM) Ferritin Level [26-388 ng/mL] 4733 ng/mL *HI* (01/08/23 1:53 PM) Platelets [130-450 x10^3/mcL] 63 x10^3/m cL *LOW* (01/08/23 1:53 PM) CO2 [21-32 mmol/L] 27 mmol/L (01/08/23 1:53 PM) TIBC [250-450 mcg/dL] 153 mcg/dL *LOW* (01/08/23 1:53 PM) Iron [65-175 mcg/dL] 17 mcg/dL *LOW* (01/08/23 1:53 PM) eGFR Non-AA [>=60] 83 (01/08/23 1:53 PM) eGFR AA [>=60] 83 (01/08/23 1:53 PM) Chloride Level [98-107 mmol/L] 95 mmol/L *LOW* (01/08/23 1:53 PM) RDW-CV [11.5-14.5 %] 14.2 % (01/08/23 1:53 PM) Smudge Cells Small (01/08/23 1:53 PM) Slide Review Man Diff (01/08/23 1:53 PM) Abs Neut Man 5.8 x10^3/mcL *NA* (01/08/23 1:53 PM) Immature Cells 2 *NA* (01/08/23 1:53 PM) Creatinine Level [0.70-1.30 mg/dL] 1.04 mg/dL (01/08/23 1:53 PM) Employed in healthcare? No *NA* (01/08/23 1:53 PM) Symptomatic as defined by CDC? Yes *NA* (01/08/23 1:53 PM) Date of onset (Lab) 18-DEC-2022 *Unknown* (01/08/23 1:53 PM) SARS-CoV-2(Covid19)PCR(GXpert COVFLURSV) [Negative] Negative (01/08/23 1:53 PM) Flu A (GXpert COVFLURSV) [Negative] Nega tive (01/08/23 1:53 PM) RSV (GXpert COVFLURSV) [Negative] Negati ve (01/08/23 1:53 PM) Flu B (GXpert COVFLURSV) [Negative] Nega tive (01/08/23 1:53 PM) Baso Man [0-1 %] 0 % (01/08/23 1:53 PM) ESR, Westergren [0-20 mm/hr] 37 mm/hr *HI* (01/08/23 1:53 PM) Social History Social History Type Response Tobacco Current everyday tob acco user Tobacco Use:. 1/2 to 1 packs per day per day. Sex Male Patient Care team information Care Team Personnel Name: Conchita Parra NP Position: Physician Member Role: Informed Provider Address: Address: [place] [address]- Care Team Related Persons Name: NILDA TOM Address: Alternate [address] [facility] [id number] Address: Home [address] [place], [place] [id number] Address: Mailing [address] [place], [place] [id number]
--- OUTSIDE RECORDS SUMMARY | 2023-01-11 21:27 | XMS_ITS | Continuity of Care Document ---
Author Name Unknown Organization [facility] Address [address] [place] [address] Care Team Providers Care Brush Fabrication Supervisor Name Role Phone Conchita Parra Primary Care Physician Encounter [facility] Date(s): 03/27/22 - 03/27/22 [facility] [address] [place] [address] Discharge Disposition: Home or Self Care Attending Physician: Conchita Parra NP Admitting Physician: Conchita Parra NP Referring Physician: Conchita Parra COURT OPERATIONS CLERK Allergies, Adverse Reactions, Alerts No Known Medication Allergies Immunizations Given and Recorded Vaccine Date Status Refusal Reason zoster vaccine, inactivated 03/26/22 Given SARS-CoV-2 mRNA (tozinameran 12y+) bival 03/26/22 Given SARS-CoV-2 (COVID-19) mRNA-1273 vaccine 03/17/21 R ecorded SARS-CoV-2 (COVID-19) mRNA-1273 vaccine 08/21/20 R ecorded SARS-CoV-2 (COVID-19) mRNA-1273 vaccine 07/25/20 R ecorded Medications varenicline 0.5 mg oral tablet 0.5 mg = 1 tab, Oral, Daily, Days 1-3: 0.5 mg once daily. Days 4-7: 0.5 mg twice daily. Maintenance(day 8 and later): 1 mg twice daily, # 56 tab, 1 Refill(s), Pharmacy: [facility] #[id number] Start Date: 03/26/22 Status: Ordered Problem List Condition Confirmation Course Effective Dates Status Health St atus Informant Chest pain 1 Confirmed Active Dyslipidemia Confirmed Active Dyspnea 2 Confirmed Active Elevated blood pressure reading without diagnosis of hypertension Confirmed Active Hypertension Confirmed Active Immunization due Confirmed Active Nicotine dependence Confirmed Active Obesity Confirmed Active Overactive bladder 3 Confirmed Active Pain in lower limb 4 Confirmed Active Prediabetes Confirmed Active Visit for suture removal Confirmed Active 1 Intermittent; per new patient packet. 2 Intermittent; per new patient packet. 3Frequent urge; per new patient packet. 4Not specified; per new patient packet. Results Laboratory List Name Date Comprehensive Metabolic Panel (CMP) 03/12 10/01 Hemoglobin A1c 03/27/22 Lipid Panel 03/27/22 Most recent to oldest [Reference Range]: 1 BUN [7-18 mg/dL] 16 mg/dL (03/27/22 9:46 AM) Cholesterol Total [50-200 mg/dL] 203 mg/ dL *HI* (03/27/22 9:46 AM) LDL [0-130 mg/dL] 123 mg/dL (03/27/22 9:46 AM) Glucose Level [74-106 mg/dL] 109 mg/dL *HI* (03/27/22 9:46 AM) Potassium Level [3.5-5.1 mmol/L] 4.3 mmo l/L (03/27/22 9:46 AM) HDL [40-60 mg/dL] 35 mg/dL *LOW* (03/27/22 9:46 AM) AST [15-37 unit/L] 23 unit/L (03/27/22 9:46 AM) ALT [16-63 unit/L] 43 unit/L (03/27/22 9:46 AM) Sodium Level [136-145 mmol/L] 140 mmol/L (03/27/22 9:46 AM) Triglycerides [0-150 mg/dL] 225 mg/dL *HI* (03/27/22 9:46 AM) Calcium Level [8.5-10.1 mg/dL] 9.2 mg/dL (03/27/22 9:46 AM) Albumin Level [3.4-5.0 g/dL] 3.8 g/dL (03/27/22 9:46 AM) Protein Total [6.4-8.2 g/dL] 7.9 g/dL (03/27/22 9:46 AM) Bilirubin Total [0.2-1.0 mg/dL] 0.4 mg/d L (03/27/22 9:46 AM) Alk Phos [46-146 unit/L] 66 unit/L (03/27/22 9:46 AM) CO2 [21-32 mmol/L] 30 mmol/L (03/27/22 9:46 AM) eGFR Non-AA [>=60] 71 (03/27/22 9:46 AM) eGFR AA [>=60] 71 (03/27/22 9:46 AM) Hemoglobin A1c [4.0-6.0 %] 6.2 % *HI* (03/27/22 9:46 AM) Chloride Level [98-107 mmol/L] 103 mmol/ L (03/27/22 9:46 AM) Creatinine Level [0.70-1.30 mg/dL] 1.19 mg/dL (03/27/22 9:46 AM) Social History Social History Type Response Tobacco Current everyday tob acco user Tobacco Use:. 2 packs per day per day. Sex Male Patient Care team information Personnel Name: Conchita Parra NP Address: Address: [place], [place] [address]
--- OUTSIDE RECORDS SUMMARY | 2023-01-11 21:28 | XMS_ITS | Continuity of Care Document ---
Author Name Unknown Organization [facility] Address [address] [place] [address] Care Team Providers Care Data Report Analyst Name Role Phone Conchita Parra Primary Care Physician [facility] [address] [place] [address] Discharge Disposition: Home or Self Care Attending Physician: Conchita Parra NP Admitting Physician: Conchita Parra NP Referring Physician: Conchita Parra STRUCTURAL TECHNICIAN Allergies, Adverse Reactions, Alerts No Known Medication Allergies Assessment and Plan Future Appointments Diagnostic Tests Pending * Pathology Smear Consult 12/28/22 Future Scheduled Tests Laboratory* Urinalysis with Micro [...] breath, # 1 EA, 2 Refill(s), Pharmacy: [facility] #[id number] Start Date: 12/28/22 Status: Ordered omeprazole 40 mg oral delayed release capsule 40 mg = 1 cap, Oral, Daily, # 30 cap, 2 Refill(s), Pharmacy: [facility] #[id number] Start Date: 12/28/22 Status: Ordered Problem List [...] patient packet. Results Laboratory List Name Date .Urinalysis POCT 12/28/22 Urinalysis Microscopic 12/28/22 .Manual Differential (NCTY) 12/28/22 Amylase Level 12/28/22 Basic Metabolic Panel (BMP) 12/28/22 CBC w/ Diff 12/28/22 D-Dimer 12/28/22 GGT 12/28/22 Hemoglobin A1c 12/28/22 Hepatic Function Panel 12/28/22 Hepatitis C Ab w/Rflx to HCV RNA PCR [facility] 12/28/22 Lipase Level 12/28/22 Lipid Panel 12/28/22 NT- Pro BNP 12/28/22 PSA Screen 12/28/22 TSH w/ Rflx to Free T4 12/28/22 Most recent to oldest [Reference Range]: 1 WBC [5.0-10.0 x10^3/mcL] 6.3 x10^3/mcL (12/28/22 12:52 PM) RBC [4.6-6.0 x10^6/mcL] 4.5 x10^6/mcL *LOW* (12/28/22 12:52 PM) Segs Man [40-75 %] 65 % (12/28/22 12:52 PM) Lymph Man [20-50 %] 20 % (12/28/22 12:52 PM) [place] Man [2-15 %] 2 % (12/28/22 12:52 PM) Eos Man [1-6 %] 1 % (12/28/22 12:52 PM) BUN [7-18 mg/dL] 18 mg/dL (12/28/22 12:52 PM) Cholesterol Total [50-200 mg/dL] 175 mg/ dL (12/28/22 12:52 PM) UA WBC [0-3] 0-3 (12/28/22 12:56 PM) LDL [0-130 mg/dL] 121 mg/dL (12/28/22 12:52 PM) Glucose Level [74-106 mg/dL] 100 mg/dL (12/28/22 12:52 PM) Lymph, Atyp Man 1 % *NA* (12/28/22 PM) Potassium Level [3.5-5.1 mmol/L] 4.1 mmo l/L (12/28/22: PM) MCV [80.0-96.0 fL] 91.5 fL (12/28/22 12:52 PM) RBC Morph Normal (12/28/22 PM) HDL [40-60 mg/dL] 27 mg/dL *LOW* (12/28/22: PM) AST [15-37 unit/L] 41 unit/L *HI* (12/28/22: PM) Amylase Level [25-115 unit/L] 33 unit/L (12/28/22: PM) ALT [16-63 unit/L] 109 unit/L *HI* (12/28/22: PM) MCHC [31.0-35.0 g/dL] 33.4 g/dL (12/28/22: PM) Sodium Level [136-145 mmol/L] 137 mmol/L (12/28/22 12:52 PM) UA RBC [0-2] 0-2 (12/28/22 12:56 PM) Hct [41.0-51.0 %] 41.0 % (12/28/22 12: PM) UA Bacteria None Seen /HPF (12/28/22:56 PM) Lipase Level [16-77 unit/L] 28 unit/L 1 (12/28/22 12:52 PM) Triglycerides [0-150 mg/dL] 136 mg/dL (12/28/22 12:52 PM) Calcium Level [8.5-10.1 mg/dL] 8.9 mg/dL (12/28/22 12:52 PM) Albumin Level [3.4-5.0 g/dL] 3.1 g/dL *LOW* (12/28/22 12:52 PM) Protein Total [6.4-8.2 g/dL] 7.8 g/dL (12/28/22 12:52 PM) MCH [26.0-32.0 pg] 30.6 pg (12/28/22 12:52 PM) Bilirubin Total [0.2-1.0 mg/dL] 0.5 mg/d L (12/28/22 12:52 PM) Hgb [14.0-18.0 g/dL] 13.7 g/dL *LOW* (12/28/22 12: PM) Alk Phos [46-146 unit/L] 73 unit/L (12/28/22 12:52 PM) UA Mucous None Seen /HPF (12/28/22 12:56 PM) Band Man [0-5 %] 2 % (12/28/22 12:52 PM) Bilirubin Direct [0.00-0.20 mg/dL] 0.19 mg/dL (12/28/22 12:52 PM) Platelets [130-450 x10^3/mcL] 132 x10^3/ mcL (12/28/22 12:52 PM) CO2 [21-32 mmol/L] 28 mmol/L (12/28/22 12:52 PM) UA Squam Epithelial [None Seen] Rare (12/28/22 12:56 PM) TSH [0.358-3.740 mcIntlUnit/mL] 0.642 mc IntlUnit/mL (12/28/22 12:52 PM) GGT [15-85 unit/L] 118 unit/L *HI* (12/28/22 12:52 PM) eGFR Non-AA [>=60] 73 (12/28/22 12:52 PM) eGFR AA [>=60] 73 (12/28/22 12:52 PM) Hemoglobin A1c [4.0-6.0 %] 6.7 % *HI* (12/28/22 12:52 PM) NT-proBNP [0-125 pg/mL] 229 pg/mL *HI* (12/28/22 12:52 PM) Chloride Level [98-107 mmol/L] 99 mmol/L (12/28/22 12:52 PM) RDW-CV [11.5-14.5 %] 14.4 % (12/28/22 12:52 PM) Slide Review Man Diff (12/28/22 12:52 PM) UA Culture Ind?. Not Indicated (12/28/22 12:56 PM) UA Amorph Moderate /HPF (12/28/22 12:56 PM) Immature Cells 9 *NA* (12/28/22 12:52 PM) Method of Collect POC Clean Catch *NA* (12/28/22 12:56 PM) Specific [place], Ur POC 1.020 *NA* (12/28/22 12:56 PM) Specimen Color POC Dark Yellow *NA* (12/28/22 12:56 PM) Glucose, Urine POC [Negative] Negative (12/28/22 12:56 PM) Bilirubin, Urine POC [Negative] Positive *ABN* (12/28/22 12:56 PM) Ketones, Urine POC [Negative] Trace *ABN* (12/28/22 12:56 PM) Blood, Urine POC [Negative] Negative (12/28/22 12:56 PM) pH, Urine POC 6 *NA* (12/28/22 12:56 PM) Protein, Urine POC [Negative] 2+ *ABN* (12/28/22 12:56 PM) Urobilinogen, Urine POC Positive *ABN* (12/28/22 12:56 PM) Nitrite, Urine POC [Negative] Negative (12/28/22 12:56 PM) Leuk Esterase, Urine POC [Negative] Nega tive (12/28/22 12:56 PM) Clarity, Urine POC [Clear] Clear (12/28/22 12:56 PM) Creatinine Level [0.70-1.30 mg/dL] 1.16 mg/dL (12/28/22 12:52 PM) Hep C Antibody [facility] [Negative] Negative 3 *NA* (12/28/22 12:52 PM) PSA Total Screening [0.00-4.00 ng/mL] 2. 07 ng/mL 4 (9/18/23 12:52 PM) Baso Man [0-1 %] 0 % (12/28/22 12:52 PM) D Dimer, (Quant.) [0.00-0.50 mg/L] >30.0 0 mg/L 5 *HI* (12/28/22 12:52 PM) 1Interpretive Data: Effective 01/29/22, [facility] has switched to a revised Lipase test.Note new ReferenceRange. 3Result Comment: Test performed or referred by The [address] [id number] 4Interpretive Data: The testing method is an heterogeneous enzyme Immunoassay manufactured by [employer] and performed on the Paracosm system. Values obtained with different assay methods or kits may be different and cannot be used interchangeably. Test results cannot be interpreted as absolute evidence for the presence or absence of malignant disease. 5Interpretive Data: Exclusion of PE: Effective December 30, 2011 a new D-Dimer assay [INNOVANCE] is being implemented, this test has a [...] >/= 0.50 was considered positive for PE. Social History Social History Type Response Tobacco Current everyday tob acco user Tobacco Use:. 1/2 to 1 packs per day per day. Sex Male Patient Care team information Care Team Personnel Name: Conchita Parra NP Position: Physician Member Role: Primary Care Physician Address: Address: [place] [address]- Care Team Related Persons Name: TAE YAO Address: Home [address] [place], [place] [address]
--- OUTSIDE RECORDS SUMMARY | 2023-01-11 21:28 | XMS_ITS | Continuity of Care Document ---
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 Role Phone Conchita Parra Primary Care Physician [facility] Date(s[facility] 12/28/22 - 12/28/[address] [phone] [place] Encounter Diagnosis Chest pain(Discharge Diagnosis) - 12/28/22 Shortness of breath(Discharge Diagnosis) - 12/28/22 Night sweat(Discharge Diagnosis) - 12/28/22 Discharge Disposition: Home or Self Care Attending Physician: Beltran Back MD Admitting Physician: Beltran Back MD Allergies, Adverse Reactions, Alerts No Known Medication Allergies Assessment and Plan Future Appointments Future Scheduled Tests Laboratory* Urinalysis with Micro if Indicated and Culture if Indicated 12/28/22 Radiology* XR Chest 2 Views 12/28/22 * CT Chest/Abd/Pelvis w/ Contrast 12/28/22 Functional Status 12/28/22 Recent Travel History No recent travel Other [...] breath, # 1 EA, 2 Refill(s), Pharmacy: [facility] #[id number] Start Date: 12/28/22 Status: Ordered omeprazole 40 mg oral delayed release capsule 40 mg = 1 cap, Oral, Daily, # 30 cap, 2 Refill(s), Pharmacy: [facility] #[id number] Start Date: 12/28/22 Status: Ordered Mental Status 12/28/22 Eye Opening Response Sagrario Spontaneous ly Best Verbal Response Sagrario Oriented Best Motor Response [place] Obeys comman ds Sagrario Coma Score 15 Problem List Condition Confirmation Course Effective Dates [...] patient packet. Results Laboratory List Name Date CBC w/ Diff 12/28/22 Comprehensive Metabolic Panel 12/28/22 D-Dimer 12/28/22 NT- Pro BNP 12/28/22 SARS-CoV-2 (COVID-19) RNA (ID Now) Troponin-I 12/28/22 .Manual Differential (NCTY) 12/28/22 Most recent to oldest [Reference Range]: 1 WBC [5.0-10.0 x10^3/mcL] 7.1 x10^3/mcL (12/28/22 7:08 PM) RBC [4.6-6.0 x10^6/mcL] 4.5 x10^6/mcL *LOW* (12/28/22 7:08 PM) Segs Man [40-75 %] 54 % (12/28/22 7:08 PM) Lymph Man [20-50 %] 40 % (12/28/22 7:08 PM) [place] Man [2-15 %] 1 % *LOW* (12/28/22 7:08 PM) Eos Man [1-6 %] 0 % *LOW* (12/28/22 7:08 PM) BUN [7-18 mg/dL] 18 mg/dL (12/28/22 7:08 PM) Glucose Level [74-106 mg/dL] 108 mg/dL *HI* (12/28/22:08 PM) Potassium Level [3.5-5.1 mmol/L] 4.1 mmo l/L (12/28/22:08 PM) MCV [80.0-96.0 fL] 90.9 fL (12/28/22:08 PM) RBC Morph Normal (12/28/2208 PM) AST [15-37 unit/L] 62 unit/L *HI* (12/28/22: PM) ALT [16-63 unit/L] 130 unit/L *HI* (12/28/22:08 PM) MCHC [31.0-35.0 g/dL] 34.0 g/dL (12/28/22:08 PM) Troponin-I [0.0-76.2 pg/mL] 5.3 pg/mL (12/28/22:08 PM) Sodium Level [136-145 mmol/L] 135 mmol/L *LOW* (12/28/22:08 PM) Hct [41.0-51.0 %] 40.9 % *LOW* (12/28/22:08 PM) Calcium Level [8.5-10.1 mg/dL] 8.7 mg/dL (12/28/22:08 PM) Albumin Level [3.4-5.0 g/dL] 3.2 g/dL *LOW* (12/28/22:08 PM) Protein Total [6.4-8.2 g/dL] 8.0 g/dL (12/28/22:08 PM) MCH [26.0-32.0 pg] 30.9 pg (12/28/22:08 PM) Bilirubin Total [0.2-1.0 mg/dL] 0.7 mg/d L (12/28/22:08 PM) Hgb [14.0-18.0 g/dL] 13.9 g/dL *LOW* (12/28/22:08 PM) Alk Phos [46-146 unit/L] 71 unit/L (12/28/22 7:08 PM) Band Man [0-5 %] 1 % (12/28/22 7:08 PM) Platelets [130-450 x10^3/mcL] 124 x10^3/ mcL *LOW* (12/28/22 7:08 PM) CO2 [21-32 mmol/L] 28 mmol/L (12/28/22 7:08 PM) eGFR Non-AA [>=60] 75 (12/28/22 7:08 PM) eGFR AA [>=60] 75 (12/28/22 7:08 PM) NT-proBNP [0-125 pg/mL] 191 pg/mL *HI* (12/28/22 7:08 PM) Chloride Level [98-107 mmol/L] 97 mmol/L *LOW* (12/28/22 7:08 PM) RDW-CV [11.5-14.5 %] 14.4 % (12/28/22 7:08 PM) Slide Review Man Diff (12/28/22 7:08 PM) Abs Neut Man 3.9 x10^3/mcL *NA* (12/28/22 7:08 PM) Immature Cells 4 *NA* (12/28/22 7:08 PM) Creatinine Level [0.70-1.30 mg/dL] 1.13 mg/dL (12/28/22 7:08 PM) SARS-CoV-2 (COVID-19) RNA (ID Now) [Not Detected] Not Detected (12/28/22 7:08 PM) Baso Man [0-1 %] 0 % (12/28/22 7:08 PM) D Dimer, (Quant.) [0.00-0.50 mg/L] >30.0 0 mg/L 1, 2 *HI* (12/28/22 7:08 PM) 1Result Comment: Called to and verbally verified by Oni Ramires at 12/28/2022 19:59:45 EDT. 2Interpretive Data: Exclusion of PE: Effective December 30, [...] 3 Temperature Temporal Artery [36-38 Deg C] 37.6 Deg C (12/28/22 9:05 PM) 38.0 Deg C (12/28/22 6:44 PM) Temperature Temporal Artery (DegF) [97.3-100 Deg F] 99.68 Deg F (12/28/22 9:05 PM) Peripheral Pulse Rate [60-100 bpm] 78 bpm (12/28/22 10:18 PM) 84 bpm (12/28/22 9:05 PM) 90 bpm (12/28/22 8:28 PM) Heart Rate Monitored [60-100 bpm] 78 bpm (12/28/22 10:18 PM) 85 bpm (12/28/22 9:05 PM) 91 bpm (12/28/22 8:28 PM) Respiratory Rate [12-24 br/min] 22 br/min (12/28/22 10:18 PM) 22 br/min (12/28/22 9:05 PM) 20 br/min (12/28/22 8:28 PM) Blood Pressure [90-140/60-90 mmHg] 101/67mmHg (12/28/22 10:18 PM) 111/69mmHg (12/28/22 9:05 PM) 113/70mmHg (12/28/22 8:28 PM) Weight 96.25 kg (12/28/22 6:44 PM) Weight Dosing 96.25 kg (12/28/22 7:00 PM) Height 163.000 cm (12/28/22 6:44 PM) Height/Length Dosing 163.000 cm (12/28/22 6:59 PM) Body Mass Index 36.000 kg/m2 (12/28/22 6:44 PM) Social History Social History Type Response Tobacco Current everyday tob acco user Tobacco Use:. 1/2 to 1 packs per day per day. Sex Male Hospital Discharge Instructions Patient Education 12/28/2022 21:34:13 Fever, Adult Fever, Adult A fever is an increase in the body's temperature. It is usually defined as a temperature of 100.4??F (38??C) or higher. Brief mild or moderate fevers generally have no long-term effects, and they often do not need treatment. Moderate or high fevers may make you feel uncomfortable and can sometimes be a sign of a serious illness or disease. The sweating that may occur with repeated or prolonged fever may also cause a loss of fluid in the body (dehydration). Fever is confirmed by taking a temperature with a thermometer. A measured temperature can vary with: ??? Age. ??? Time of day. ??? Where in the body you take the temperature. Readings may vary if you place the thermometer: ??? In the mouth (oral). ??? In the rectum (rectal). ??? In the ear (tympanic). ??? Under the arm (axillary). ??? On the forehead (temporal). Follow these instructions at home: Medicines ??? Take over-the counter and prescription medicines only as told by your health care provider. Follow the dosing instructions carefully. ??? If you were prescribed an antibiotic medicine, take it as told by your health care provider. Donot stop taking the antibiotic even if you start to feel better. General instructions ??? Watch your condition for any changes. Let your health care provider know about them. ??? Rest as needed. ??? Drink enough fluid to keep your urine pale yellow. This helps to prevent dehydration. ??? Sponge yourself or bathe with room-temperature water to help reduce your body temperature as needed. Do not use ice water. ??? Do not use too many blankets or wear clothes that are too heavy. ??? If your fever may be caused by an infection that spreads from person to person (is contagious),such as a cold or the flu, you should stay home from work and public gatherings for at least 24 hours after your fever is gone. Your fever should be gone without the need to use medicines. Contact a health care provider if: ??? You vomit. ??? You cannot eat or drink without vomiting. ??? You have diarrhea. ??? You have pain when you urinate. ??? Your symptoms do not improve with treatment. ??? You develop new symptoms. ??? You develop excessive weakness. Get help right away if: ??? You have shortness of breath or have trouble breathing. ??? You are dizzy or you faint. ??? You are disoriented or confused. ??? You develop signs of dehydration, such as: ??? Dark urine, very little urine, or no urine. ??? Cracked lips. ??? Dry mouth. ??? Sunken eyes. ??? Sleepiness. ??? Weakness. ??? You develop severe pain in your abdomen. ??? You have persistent vomiting or diarrhea. ??? You develop a skin rash. ??? Your symptoms suddenly get worse. Summary ??? A fever is an increase in the body's temperature. It is usually defined as a temperature of 100.4??F (38??C) or higher. Moderate or high fevers can sometimes be a sign of a serious illness or disease. The sweating that may occur with repeated or prolonged fever may also cause dehydration. ??? Pay attention to any changes in your symptoms and contact your health care provider if your symptoms do not improve with treatment. ??? Take over-the counter and prescription medicines only as told by your health care provider. Follow the dosing instructions carefully. ??? If your fever is from an infection that may be contagious, such as cold or flu, you should stayhome from work and public gatherings for at least 24 hours after your fever is gone. Your fever should be gone without the need to use medicines. ??? Get help right away if you develop signs of dehydration, such as dark urine, cracked lips, dry mouth, sunken eyes, sleepiness, or weakness. This information is not intended to replace advice given to you by your health care provider. Make sure you discuss any questions you have with your health care provider. Document Revised: 08/19/2021 Document Reviewed: 08/19/2021 [employer] Patient Education ?? 2022 [email or web address]. Follow Up Care 12/28/2022 18:43:56 With:Follow up with primary care provider Address: When:1 to 2 weeks Physician Emergency department Note * Kristy Abdul MD: PERFORM Event Display: ED Note Physician Authored Date: [id number] MARIA INES YAO :1965 Age:57 years Sex:Male Visit Date:12/28/2022 Primary Care Physician: Conchita Parra NP Basic Information Time Seen: Kristy Abdul MD / 12/28/2022 19:38 Chief Complaint Pt sent by PCP for rule out blood clot after blood work today. Pt states SOB, intermittent chest pressure, headache and chills x two weeks History Of Present Illness: Patient reports he has had some upper abdominal chest pain??has been ongoing for a couple of weeks that he decided he should go to his primary care provider??to be checked out today his D-dimer was quite positive??greater than 30.0??and so he was sent here for further evaluation. ??Patient does report he has had some shortness of breath??and has felt fatigued over the last couple weeks quite up to par.?? Positive fever with night sweats he reports fevers up to several 100??he states??last nighthe woke up with a sweat. ??No ear nose or throat pain??no nausea no vomiting no diarrhea no extremity edema no family history positive smoking Review of Systems: see hpi for ros Physical Exam Vitals & Measurements T:??37.6?C ??(Temporal Artery)?? HR:??78??(Peripheral)?? HR:??78??(Monitored)?? RR:??22?? BP:??101/67?? SpO2:??93%?? HT:??163.000??cm?? WT:??96.25??kg?? BMI:??36.000?? Pain Score:??5?? O2 Therapy:??Room air?? General: Alert and oriented, well nourished,?No??acute distress Eye: PER?Normal??conjunctiva,??No??scleral icterus HENT: Normocephalic,??nontraumatic??Normal hearing Lungs: Clear to auscultation,?Non-labored?? respiration Heart:?Normal?? rate,?Regular??rhythm,?No??murmur,?No??gallop,?No??edema Chest: wall excursion wnl no abnormal movements no obvious deformities??no reproducible chest wall pain to palpation Abdomen: Soft, moderate tenderness epigastric area, non-distended,?Normal?? bowel sounds,?No??masses Musculoskeletal:?Normal?? range of motion and strength,?No??tenderness,?No??swelling Skin: Skin is warm, dry and pink,?No??rashes,?No??lesions Neurologic: Awake, alert and oriented X4 Psychiatric: Cooperative, appropriate mood and affect Procedure No Qualifying Data Assessment/Plan 1.??Chest pain??R07.9 Patient has had a CT chest CT abdomen and pelvis??as??patient's??chest discomfort seems to be epigastric in relation and does not seem to be??reproducible on exam with??chest palpation??patient does have an elevated D- dimer??that was also elevated here??CTA of the chest is reassuring there was no pneumonia seen I think patient likely has a virus??and expect patient should get better within the next week or 2 if not patient may need further testing??for his??night sweats and fever. 2.??Shortness of breath??R06.02 Patient's vital signs are stable here??CT chest is reassuring??expect things will improve there is no pneumonia on x-ray 3.??Night sweat??R61 Patient reports he gets??night sweats at night over the last few days expect this will improve??as his likely virus improves as well??however if continues he will need to see his primary care provider in follow-up. Orders: Review Orders for Potential Auths., 12/28/22 19:01:05 EDT Medication Reconciliation Unchanged albuterol (Albuterol (Eqv-ProAir HFA) 90 mcg/inh inhalation aerosol)2 Puffs Inhale (breathe in) every 4 hours as needed shortness of breath. Refills: 2. ?? omeprazole (omeprazole 40 mg oral delayed release capsule)1 Capsules Oral (given by mouth) every day. Refills: 2. Problem List/Past Medical History Ongoing Abdominal pain Chest pain Dyslipidemia Dyspnea Dyspnea on exertion Early satiety Fever of unknown origin Hypertension Immunization due Nicotine dependence Night sweats Obesity Overactive bladder Pain in lower limb Prediabetes Unintentional weight loss Visit for suture removal Historical No qualifying data Medication Administration Given Tylenol, 1000 mg, Oral Allergies No Known Medication Allergies Social History Alcohol Current, 1-2 times per week Electronic Cigarette/Vaping Electronic Cigarette Use: Never. Employment/School Employed Home/Environment Lives with Significant other. Nutrition/Health Diet: Regular. Substance Use Never Tobacco Current everyday tobacco user Tobacco Use:. 1/2 to 1 packs per day per day. Family History Cancer: Mother. Family history of breast cancer: Sister. Heart disease: Father. Pneumonia: Father. Family Member(s): ?? FATHER, at age: Unknown. Cause of : Family Member(s): ?? MOTHER, at age: Unknown. Cause of : Lab Results CBC and Differential?? LATEST RESULTS?? HISTORICAL RESULTS?? WBC?? 12/28/22 19:08?? 7.1?? 12/28/22?? 6.3?? RBC?? 12/28/22 19:08?? 4.5 ??Low?? 12/28/22?? 4.5 ??Low?? Hgb?? 12/28/22 19:08?? 13.9 ??Low?? 12/28/22?? 13.7 ??Low?? Hct?? 12/28/22 19:08?? 40.9 ??Low?? 12/28/22?? 41.0?? MCV?? 12/28/22 19:08?? 90.9?? 12/28/22?? 91.5?? MCH?? 12/28/22 19:08?? 30.9?? 12/28/22?? 30.6?? MCHC?? 12/28/22 19:08?? 34.0?? 12/28/22?? 33.4?? RDW-CV?? 12/28/22 19:08?? 14.4?? 12/28/22?? 14.4?? Platelets?? 12/28/22 19:08?? 124 ??Low?? 12/28/22?? 132?? Segs Man?? 12/28/22 19:08?? 54?? 12/28/22?? 65?? Lymph Man?? 12/28/22 19:08?? 40?? 12/28/22?? 20?? [place] Man?? 12/28/22 19:08?? 1 ??Low?? 12/28/22?? 2?? Eos Man?? 12/28/22 19:08?? 0 ??Low?? 12/28/22?? 1?? Baso Man?? 12/28/22 19:08?? 0?? 12/28/22?? 0?? Band Man?? 12/28/22 19:08?? 1?? 12/28/22?? 2?? Abs Neut Man?? 12/28/22 19:08?? 3.9? RBC Morph?? 12/28/22 19:08?? Normal?? 12/28/22?? Normal?? Immature Cells?? 12/28/22 19:08?? 4?? 12/28/22?? 9?? Slide Review?? 12/28/22 19:08?? Man Diff?? 12/28/22?? Man Diff? Coagulation?? LATEST RESULTS?? HISTORICAL RESULTS?? D Dimer, (Quant.)?? 12/28/22 19:08?? >30.00 ??High?? 12/28/22?? >30.00 ??High? Routine Chemistry?? LATEST RESULTS?? HISTORICAL RESULTS?? Sodium Level?? 12/28/22 19:08?? 135 ??Low?? 12/28/22?? 137?? Potassium Level?? 12/28/22 19:08?? 4.1?? 12/28/22?? 4.1?? Chloride Level?? 12/28/22 19:08?? 97 ??Low?? 12/28/22?? 99?? CO2?? 12/28/22 19:08?? 28?? 12/28/22?? 28?? Alk Phos?? 12/28/22 19:08?? 71?? 12/28/22?? 73?? AST?? 12/28/22 19:08?? 62 ??High?? 12/28/22?? 41 ??High?? ALT?? 12/28/22 19:08?? 130 ??High?? 12/28/22?? 109 ??High?? BUN?? 12/28/22 19:08?? 18?? 12/28/22?? 18?? Glucose Level?? 12/28/22 19:08?? 108 ??High?? 12/28/22?? 100?? Creatinine Level?? 12/28/22 19:08?? 1.13?? 12/28/22?? 1.16?? eGFR AA?? 12/28/22 19:08?? 75?? 12/28/22?? 73?? eGFR Non-AA?? 12/28/22 19:08?? 75?? 12/28/22?? 73?? Calcium Level?? 12/28/22 19:08?? 8.7?? 12/28/22?? 8.9?? Protein Total?? 12/28/22 19:08?? 8.0?? 12/28/22?? 7.8?? Albumin Level?? 12/28/22 19:08?? 3.2 ??Low?? 12/28/22?? 3.1 ??Low?? Bilirubin Total?? 12/28/22 19:08?? 0.7?? 12/28/22?? 0.5? Cardiac Isoenzymes?? LATEST RESULTS?? HISTORICAL RESULTS?? Troponin-I?? 12/28/22 19:08?? 5.3? NT-proBNP?? 12/28/22 19:08?? 191 ??High?? 12/28/22?? 229 ??High? Infectious Disease?? LATEST RESULTS?? SARS-CoV-2 (COVID-19) RNA (ID Now)?? 12/28/22 19:08?? Not Detected? Electronically Signed on 12/28/22 10:20 PM Kristy Abdul MD Emergency department Discharge instructions * Kristy Abdul MD: PERFORM Event Display: ED Discharge Information Authored Date: [id number] MARIA INES YAO :1965 Age:57 years Sex:Male Visit Date:12/28/2022 Primary Care Physician: Conchita Parra [employer] Discharge Instructions We would like to thank you for allowing us to assist you with your healthcare needs. The following includes patient education materials and information regarding your injury/illness. Diagnosis from Today's Visit Chest pain Shortness of breath Night sweat Discharge Vitals Temperature??(Temporal Artery) 99.7 ??F (37.6 ??C) Heart Rate??(Peripheral) 78 Heart Rate??(Monitored) 78 Respiratory Rate?? 22 Blood Pressure?? 101/67?? Height?? 64.17 in (163.000 cm) Weight?? 212.23 lb (96.25 kg) BMI?? 36.000 Allergies No Known Medication Allergies What to Do Next Instructions from Your Care Team You may take up to 800 mg of Motrin, Advil??(ibuprofen)??every 8 hours as needed for pain or discomfort??and or??up to??1000 mg??of Tylenol??(acetaminophen) every 6 hours as needed??for pain or discomfort for maximum 4000 mg in 24 hours or you may permanently hurt your liver.?? If you worsen returnto the emergency department or see primary care provider. You Need to Schedule the Following Appointments Follow Up with??Follow up with primary care provider When:??Within 1 to 2 weeks Upcoming Scheduled Appointments 2022 1:20 PM EDT ?? You were treated today on an emergency [...] Emergency Department. Medications What How Much When Instructions Next Dose Unchanged albuterol (Albuterol (Eqv- ProAir HFA) 90 mcg/ inh inhalation aerosol) 2 Puffs Inhale (breathe in) Every 4 hours as needed for shortness of breath Unchanged omeprazole (omeprazole 40 mg oral delayed release capsule) 1 Capsules Oral (given by mouth) Every day Education Materials Fever, Adult A fever is an increase in the body's temperature. It is usually defined as a temperature of 100.4??F (38??C) or higher. Brief mild or moderate fevers generally have no long-term effects, and they often do not need treatment. Moderate or high fevers may make you feel uncomfortable and can sometimes be a sign of a serious illness or disease. The sweating that may occur with repeated or prolonged fever may also cause a loss of fluid in the body (dehydration). Fever is confirmed by taking a temperature with a thermometer. A measured temperature can vary with: ? Age. ? Time of day. ? Where in the body you take the temperature. Readings may vary if you place the thermometer: ? In the mouth (oral). ? In the rectum (rectal). ? In the ear (tympanic). ? Under the arm (axillary). ? On the forehead (temporal). Follow these instructions at home: Medicines ? Take over-the counter and prescription medicines only as told by your health care provider. Follow the dosing instructions carefully. ? If you were prescribed an antibiotic medicine, take it as told by your health care provider. Do notstop taking the antibiotic even if you start to feel better. General instructions ? Watch your condition for any changes. Let your health care provider know about them. ? Rest as needed. ? Drink enough fluid to keep your urine pale yellow. This helps to prevent dehydration. ? Sponge yourself or bathe with room-temperature water to help reduce your body temperature as needed. Do not use ice water. ? Do not use too many blankets or wear clothes that are too heavy. ? If your fever may be caused by an infection that spreads from person to person (is contagious), such as a cold or the flu, you should stay home from work and public gatherings for at least 24 hours after your fever is gone. Your fever should be gone without the need to use medicines. Contact a health care provider if: ? You vomit. ? You cannot eat or drink without vomiting. ? You have diarrhea. ? You have pain when you urinate. ? Your symptoms do not improve with treatment. ? You develop new symptoms. ? You develop excessive weakness. Get help right away if: ? You have shortness of breath or have trouble breathing. ? You are dizzy or you faint. ? You are disoriented or confused. ? You develop signs of dehydration, such as: ? Dark urine, very little urine, or no urine. ? Cracked lips. ? Dry mouth. ? Sunken eyes. ? Sleepiness. ? Weakness. ? You develop severe pain in your abdomen. ? You have persistent vomiting or diarrhea. ? You develop a skin rash. ? Your symptoms suddenly get worse. Summary ? A fever is an increase in the body's temperature. It is usually defined as a temperature of 100.4??F (38??C) or higher. Moderate or high fevers can sometimes be a sign of a serious illness or disease. The sweating that may occur with repeated or prolonged fever may also cause dehydration. ? Pay attention to any changes in your symptoms and contact your health care provider if your symptoms do not improve with treatment. ? Take over-the counter and prescription medicines only as told by your health care provider. Follow the dosing instructions carefully. ? If your fever is from an infection that may be contagious, such as cold or flu, you should stay home from work and public gatherings for at least 24 hours after your fever is gone. Your fever should be gone without the need to use medicines. ? Get help right away if you develop signs of dehydration, such as dark urine, cracked lips, dry mouth, sunken eyes, sleepiness, or weakness. This information is not intended to replace advice given to you by your health care provider. Make sure you discuss any questions you have with your health care provider. Document Revised: 08/19/2021 Document Reviewed: 08/19/2021 Else[employer] Patient Education ?? 2022 [employer] Tests Performed Medications and Immunizations Administered Given Tylenol, 1000 mg, Oral Lab Test Name Test Result Date/Time WBC 7.1 x10^3/mcL 12/28/2022 19:08 EDT RBC 4.5 x10^6/mcL 12/28/2022 19:08 EDT Hgb 13.9 g/dL 12/28/2022 19:08 EDT Hct 40.9 % 12/28/2022 19:08 EDT MCV 90.9 fL 12/28/2022 19:08 EDT MCH 30.9 pg 12/28/2022 19:08 EDT MCHC 34.0 g/dL 12/28/2022 19:08 EDT RDW-CV 14.4 % 12/28/2022 19:08 EDT Platelets 124 x10^3/mcL 12/28/2022 19:08 EDT Segs Man 54 % 12/28/2022 19:08 EDT Lymph Man 40 % 12/28/2022 19:[address] [place] Man 1 % 12/28/2022 19:08 EDT Eos Man 0 % 12/28/2022 19:08 EDT Baso Man 0 % 12/28/2022 19:08 EDT Band Man 1 % 12/28/2022 19:08 EDT Abs Neut Man 3.9 x10^3/mcL 12/28/2022 19:08 EDT RBC Morph Normal 12/28/2022 19:08 EDT Immature Cells 4 12/28/2022 19:08 EDT Slide Review Man Diff 12/28/2022 19:08 EDT D Dimer, (Quant.) >30.00 mg/L 12/28/2022 19:08 EDT Sodium Level 135 mmol/L 12/28/2022 19:08 EDT Potassium Level 4.1 mmol/L 12/28/2022 19:08 EDT Chloride Level 97 mmol/L 12/28/2022 19:08 EDT CO2 28 mmol/L 12/28/2022 19:08 EDT Alk Phos 71 unit/L 12/28/2022 19:08 EDT AST 62 unit/L 12/28/2022 19:08 EDT ALT 130 unit/L 12/28/2022 19:08 EDT BUN 18 mg/dL 12/28/2022 19:08 EDT Glucose Level 108 mg/dL 12/28/2022 19:08 EDT Creatinine Level 1.13 mg/dL 12/28/2022 19:08 EDT eGFR AA 75 12/28/2022 19:08 EDT eGFR Non-AA 75 12/28/2022 19:08 EDT Calcium Level 8.7 mg/dL 12/28/2022 19:08 EDT Protein Total 8.0 g/dL 12/28/2022 19:08 EDT Albumin Level 3.2 g/dL 12/28/2022 19:08 EDT Bilirubin Total 0.7 mg/dL 12/28/2022 19:08 EDT Troponin-I 5.3 pg/mL 12/28/2022 19:08 EDT NT-proBNP 191 pg/mL 12/28/2022 19:08 EDT SARS-CoV-2 (COVID-19) RNA (ID Now) Not Detected 12/28/2022 19:08 EDT Patient/Lead Php Developer Signature Patient Name:MARIA INES YAO I have received this information and my questions have been answered. Patient/Lead Php Developer Name: Patient/Lead Php Developer Signature: Relationship to Patient: Witness Name/Signature: Date: Electronically Signed on: 12/28/2022 22:34 EDTSigned by:[facility] Emergency department Note * Carmita Rey H: PERFORM Event Display: ED Notes Authored Date: [id number] Patient Care team information Care Team Personnel Name: Conchita Parra NP Position: Physician Member Role: Primary Care Physician Address: Address: [place], [place] [address] Name: Teagan Schmidt Position: Nurse Member Role: ED Nurse Name: Kristy Abdul MD Position: Physician Member Role: ED Physician Address: Address: [address] [place] [id number] Care Team Related Persons Name: TAE YAO Address: Home [address] [place], [place] [id number]
--- OUTSIDE RECORDS SUMMARY | 2023-01-11 21:28 | XMS_ITS | Continuity of Care Document ---
Author Name Unknown Organization [facility] Address [address] [place] [address] Care Team Providers Care Business Instructor Name Role Phone Conchita Parra Primary Care Physician [facility]28[facility] 12/28/22 [facility] [address] [place] [address] Discharge Disposition: Home Allergies, Adverse Reactions, Alerts [...] breath, # 1 EA, 2 Refill(s), Pharmacy: [facility] #[id number] Start Date: 12/28/22 Status: Ordered omeprazole 40 mg oral delayed release capsule 40 mg = 1 cap, Oral, Daily, # 30 cap, 2 Refill(s), Pharmacy: [facility] #[id number] Start Date: 12/28/22 Status: Ordered Problem List [...] Member Role: Primary Care Physician Address: Address: [address] Care Team Related Persons Name: TAE YAO Address: Home [facility] [place], [place] [id number]
--- OUTSIDE RECORDS SUMMARY | 2023-01-11 21:28 | XMS_ITS | Continuity of Care Document ---
Author Name Unknown Organization [facility] Address [address] [place] [address] Care Team Providers Care Rat Farmer Name Role Phone Conchita Parra Primary Care Physician Encounter [facility] Date(s): 12/28/22 - 12/28/22 [facility] [address] [place] [address] Discharge Disposition: Home Allergies, Adverse Reactions, Alerts [...] breath, # 1 EA, 2 Refill(s), Pharmacy: [facility] #[id number] Start Date: 12/28/22 Status: Ordered omeprazole 40 mg oral delayed release capsule 40 mg = 1 cap, Oral, Daily, # 30 cap, 2 Refill(s), Pharmacy: [facility] #[id number] Start Date: 12/28/22 Status: Ordered Problem List [...] Member Role: Primary Care Physician Address: Address: [address] Care Team Related Persons Name: TAE YAO Address: Home [facility] [place], [place] [id number]
--- NOTE | 2023-01-11 21:45 | DI.RAD_ITS ---
Exam(s) XR CHEST 2V PA LATERAL EXAM: XR CHEST 2V PA LATERAL CLINICAL HISTORY: Shortness of breath TECHNIQUE: 2D digital imaging was performed. COMPARISON: No exams were available for comparison FINDINGS: HEART: Normal size. Aorta: Not dilated. PULMONARY VASCULATURE: Normal. LUNGS: Clear. PLEURAL SPACE: No pleural effusion or pneumothorax. BONE:Unremarkable for age. IMPRESSION: No acute abnormality. DATA REPOSITORY: RADIATION DOSE DELIVERED:
--- NOTE | 2023-01-11 21:45 | DI.CT_ITS ---
Exam(s) CT UPPER EXTREMITY LT W CT UPPER EXTREMITY RT W CT CHEST PE ABD PELVIS W EXAM: CT CHEST PE ABD PELVIS W CLINICAL HISTORY: Tachycardia hypoxia. TECHNIQUE: Imaging Protocol: Axial CT angiography was performed with multi-slice acquisition and mu lti-planar and/or 3D reconstructions. CONTRAST MATERIAL: Intravenous: Omnipaque 350 Contrast volume:100 ml COMPARISON: CT CT UPPER EXTREMITY LT W from 01/11/2023 CR,XR XR CHEST 2V PA LATERAL from 01/11/[address] UPPER EXTREMITY RT W from 01/11/2023 FINDINGS: CHEST: Pulmonary Arteries: No evidence of filling defects to suggest pulmonary emboli. Tracheobronchial tree: No bronchiectasis or mucus plugging. Mediastinum and Noelle: No dominant adenopathy or fluid collection. Pulmonary parenchyma: No consolidation or dominant measurable mass. Mild emphysematous changes at th e lung apices. Minimal anterior density right upper lobe could represent small infiltrate versus ate lectasis. Minimal atelectasis at the lung bases. Pleura: No effusion. No pneumothorax. Heart: The heart is notdilated. No coronary artery calcifications are seen. Trace pericardial effu juan. Aorta: Thoracic aorta non-dilated. Bones: Degenerative changes. Tubes, Catheters, and Lines: None. ABDOMEN and PELVIS: Liver: Enlarged. Moderate hepatic steatosis. No suspicious measurable mass. Portal, Superior Mesenteric, and Splenic Veins: Unremarkable. Gallbladder and Biliary Tract: No radiodense calculus. No biliary dilatation. Pancreas: Normal density, no abnormal calcifications or inflammatory process. Spleen: Normal. Adrenals: No masses seen. Kidneys: Normal size, contour and axis. No radiodense stones. No obstructive uropathy. No masses seen . Vasculature: Aorta shows usaj-ka-[id number] calcification. There is slight dilatation the infrarenal a sandra with mural thrombus a 2.8 cm. Bowel: No obstruction or bowel wall thickening. Appendix is unremarkable. Peritoneal Cavity: No ascites, collection or mesenteric inflammatory response. Lymph Nodes: Within normal limits. Soft Tissues: Fat extends into both inguinal canals. Bladder: Symmetric distention, no gross wall thickening. Reproductive Organs: Unremarkable as visualized. Lymph Nodes: Within normal limits. Bones: Degenerative changes. No fracture. No lytic or blastic lesion. Right arm: Bones: No evidence of fracture or osteomyelitis. Soft tissues: Swelling of the dorsum of the hand. No drainable fluid collection or abscess. Vasculature: Arterial system appears patent. Left arm: Bones: No evidence of fracture or osteomyelitis. Soft tissues: Diffuse soft tissue swelling. No evidence of abscess or drainable collection. Vasculature: Arteries are patent. IMPRESSION: 1. Chest CT: No evidence of pulmonary embolism or aortic dissection. Question minimal right upper lo be anterior infiltrate versus scarring or atelectasis. Trace pericardial effusion. 2. Abdomen pelvic CT: No acute abdominal or pelvic process. Minimal dilatation of the abdominal ao rta with mural thrombus to 2.8 cm. 3. Upper extremities:: Cellulitis. No evidence of abscess. No vascular occlusion. RADIATION DOSE DELIVERED: 1,814.11mGy.cm Total DLP DATA REPOSITORY: All CT scans at this facility are submitted to the National Radiology Data Registry (NRDR) Dose Index Registry (DIR) with the [employer] (ACR). RADIATION OPTIMIZATION: All CT scans at this facility use at least one of these dose optimization te chniques: automated exposure control; mA and/or kV adjustment per patient size (includes targeted exa ms where dose is matched to clinical indication); or iterative reconstruction.
[2023-01-11 22:15] LABS: Lactate 1.9 mmol/L (0.6-1.4)
[2023-01-11 22:16] LABS: Abs Immature Grans 1.24 10^3/uL (0.0-0.06); HCT 33.9 % (40.0-50.0); HGB 11.4 g/dL (13.5-17.5); MCH 30.7 pg (27.0-33.0); MCHC 33.6 % (32.0-36.0); MCV 91 fL (80-95); RBC 3.71 10^6/uL (4.36-5.78); RDW 14.3 % (11.8-14.1); RDW-SD 47.7 fL; WBC 8.57 10^3/uL (4.4-10.8)
[2023-01-11] MEDS: Normal Saline 1,000 ML 1000 ML IV (22:20)
[2023-01-11 22:25] LABS: INR 1.5 (0.9-1.1); Prothrombin Time 15.4 sec (9.3-11.0)
[2023-01-11] MEDS: CEFEPIME 2 GM in Normal Saline 100 ML IVPB (22:26)
[2023-01-11 22:33] LABS: ALT 215 U/L (16-63); AST 89 U/L (15-37); Albumin 2.2 g/dL (3.4-5.0); Alkaline Phosphatase 91 U/L (46-116); Anion Gap 7.1 mmol/L (3-11); BUN 18 mg/dL (7-18); Bilirubin, Total 0.4 mg/dL (0.2-1.0); CO2 28.9 mmol/L (21.0-32.0); CREATININE 1.1 mg/dL (0.70-1.30); Calcium 8.8 mg/dL (8.5-10.1); Chloride 97 mmol/L (98-107); Estimated GFR 77.81 (mL/min/1.73m2); Glucose 150 mg/dL (74-106); Potassium 3.9 mmol/L (3.5-5.1); Sodium 133 mmol/L (136-145); Total Protein 7.1 g/dL (6.4-8.2)
[2023-01-11 22:40] LABS: HIV 1/2 Ab Rapid Negative (Negative)
[2023-01-11] MEDS: PIPERACILLIN/TAZO 3.375 GM in Normal Saline 50 ML IVPB (22:51)
[2023-01-11] MEDS: Omnipaque 350 MG/ML 100 ML BTL IJ (23:10)
[2023-01-11 23:16] LABS: Absolute Lymphocyte Count 2.14 10^3/uL (1.2-3.4); Absolute Neutrophil Count 5.57 10^3/uL (1.2-6.7); Atypical Lymphocytes % 13; Bands % 3; Metamyelocytes % 2; Myelocytes % 6; Platelet Count 45 10^3/uL (130-400); Promyelocytes % 2
[2023-01-11 23:17] LABS: Diff Comment Manual Differential; Polychromasia Present
[2023-01-11] MEDS: CLINDAMYCIN 900 MG/50 ML BAG 50 MG IVPB (23:34)
[2023-01-11 23:57] LABS: Source Nasal/Nares
[2023-01-12] VITALS (36 sets, daily range): BP systolic 103–158; BP diastolic 58–92; PULSE 98–125; RESP 18–29; TEMP 36–40.9; O2SAT 87–97
[2023-01-12] MEDS: Acetaminophen 500 MG TAB 1000 MG PO (00:10)
[2023-01-12] MEDS: Normal Saline - Diluent 50 ML VIAL IJ ×2 (00:16→00:39)
[2023-01-12 00:28] LABS: COVID-19 PCR Negative (Negative)
--- NOTE | 2023-01-12 00:33 | DI.VRAD_ITS ---
PROCEDURE INFORMATION: Exam: XR Chest Exam date and time: 01/11/2023 11:09 PM Age: 57 years old Clinical indication: Shortness of breath; Patient HX: SOB TECHNIQUE: Imaging protocol: Radiologic exam of the chest. Views: 2 views. COMPARISON: CT UPPER EXTREMITY LT W 01/11/2023 10:51 PM FINDINGS: Lungs: Unremarkable. No consolidation. Pleural spaces: Unremarkable. No pleural effusion. No pneumothorax. Heart/Mediastinum: Unremarkable. No cardiomegaly. Bones/joints: Moderate degenerative changes of the spine. No acute fracture. IMPRESSION: No acute disease Dictated and Authenticated by: Sher Thomas MD. Ordering:ANTONIO Belle MD
[2023-01-12 00:40] LABS: Bilirubin Negative (Negative); Blood Negative (Negative); Clarity Sl Cloudy (Clear); Glucose Negative (Negative); Ketones Negative (Negative); Leukocyte Esterase Negative (Negative); Nitrite Negative (Negative); Specific Gravity 1.015 (1.005-1.025)
[2023-01-12] MEDS: Omnipaque 350 MG/ML 100 ML BTL IJ (00:40)
[2023-01-12] MEDS: Normal Saline Flush 10 ML SYR IVP ×2 (00:42→11:54)
--- NOTE | 2023-01-12 00:48 | DI.VRAD_ITS ---
PROCEDURE INFORMATION: Exam: CT Right Upper Extremity With Contrast Exam date and time: 01/11/2023 10:51 PM Age: 57 years old Clinical indication: Patient HX: Bilat upper extremities. R hand wound and L upper arm wound. TECHNIQUE: Imaging protocol: Computed tomography of the right upper extremity with contrast. Radiation optimization: All CT scans at this facility use at least one of these dose optimization techniques: automated exposure control; mA and/or kV adjustment per patient size (includes targeted exams where dose is matched to clinical indication); or iterative reconstruction. Contrast material: OMNIPAQUE 350; Contrast volume: 100 ml; Contrast route: INTRAVENOUS (IV); COMPARISON: No relevant prior studies available. FINDINGS: Bones/joints: Osseous alignment is normal. No periostitis or other findings concerning for osteomyelitis. Soft tissues: Moderate soft tissue swelling of the dorsum of the right hand. No loculated soft tissue fluid collection. Vasculature: Arteries of the right upper extremity appear diffusely patent. No arterial stenosis or occlusion. IMPRESSION: Soft tissue swelling of the right hand without evidence of abscess or osteomyelitis. No significant vascular abnormality. Dictated and Authenticated by: Sher Thomas MD. Ordering:ANTONIO Belle MD
--- NOTE | 2023-01-12 00:50 | DI.VRAD_ITS ---
PROCEDURE INFORMATION: Exam: CT Left Upper Extremity With Contrast, Upper Arm Exam date and time: 01/11/2023 10:51 PM Age: 57 years old Clinical indication: Other: Upper arm wound TECHNIQUE: Imaging protocol: Computed tomography of the left upper extremity with contrast. Exam focused on the upper arm. Radiation optimization: All CT scans at this facility use at least one of these dose optimization techniques: automated exposure control; mA and/or kV adjustment per patient size (includes targeted exams where dose is matched to clinical indication); or iterative reconstruction. Contrast material: OMNIPAQUE 350; Contrast volume: 100 ml; Contrast route: INTRAVENOUS (IV); COMPARISON: No relevant prior studies available. FINDINGS: Bones/joints: Osseous alignment is normal. No periostitis or other findings concerning for osteomyelitis. Soft tissues: Significant diffuse soft tissue swelling and skin thickening of the left upper extremity. No loculated fluid collection to suggest abscess. Vasculature: Arteries of the left upper extremity appear diffusely patent. No evidence of arterial stenosis or occlusion. IMPRESSION: Significant diffuse soft tissue swelling of the left upper extremity. No evidence of abscess or osteomyelitis. No significant vascular abnormality. Dictated and Authenticated by: Sher Thomas MD. Ordering:ANTONIO Belle MD
[2023-01-12 00:52] LABS: Bacteria Rare HPF (Negative); C & S Indicated? No; Crystals Negative HPF (Negative); Epithelial Cells Rare HPF (Negative); Mucus Trace (Negative); RBC 0-2 HPF (0-2); WBC 0-2 HPF (0-5)
--- NOTE | 2023-01-12 00:59 | DI.VRAD_ITS ---
PROCEDURE INFORMATION: Exam: CTA Chest With Contrast Exam date and time: 01/12/2023 12:31 AM Age: 57 years old Clinical indication: Cough and other: Tachycardia hypoxia; Patient HX: ? Malignancy given thrombocytopenia. Tachycardia hypoxia TECHNIQUE: Imaging protocol: Computed tomographic angiography of the chest with contrast. Exam focused on the arteries. 3D rendering (Not supervised by radiologist): MIP and/or 3D reconstructed images were created by the technologist. Radiation optimization: All CT scans at this facility use at least one of these dose optimization techniques: automated exposure control; mA and/or kV adjustment per patient size (includes targeted exams where dose is matched to clinical indication); or iterative reconstruction. Contrast material: OMNIPAQUE 350; Contrast volume: 100 ml; Contrast route: INTRAVENOUS (IV); COMPARISON: CR XR CHEST 2V PA LATERAL 01/11/2023 11:09 PM FINDINGS: Pulmonary arteries: Normal. No pulmonary emboli. Aorta: Unremarkable. No aortic aneurysm. No aortic dissection. Lungs: Minimal focal subpleural infiltrate in the lower portion of the right upper lobe. Mild bibasilar infiltrate also noted lungs are otherwise clear. Pleural spaces: Unremarkable. No pneumothorax. No pleural effusion. Heart: Unremarkable. No cardiomegaly. No pericardial effusion. Lymph nodes: Unremarkable. No enlarged lymph nodes. Bones/joints: Moderate degenerative disc changes and osteophyte formation throughout thoracic spine. No vertebral body compression or acute fracture. Soft tissues: Unremarkable. IMPRESSION: Minimal patchy bilateral pulmonary infiltrates concerning for active pneumonitis PROCEDURE INFORMATION: Exam: CT Abdomen And Pelvis With Contrast Exam date and time: 01/12/2023 12:31 AM Age: 57 years old Clinical indication: Cough and other: Tachycardia hypoxia; Patient HX: ? Malignancy given thrombocytopenia. Tachycardia hypoxia TECHNIQUE: Imaging protocol: Computed tomography of the abdomen and pelvis with contrast. Radiation optimization: All CT scans at this facility use at least one of these dose optimization techniques: automated exposure control; mA and/or kV adjustment per patient size (includes targeted exams where dose is matched to clinical indication); or iterative reconstruction. Contrast material: OMNIPAQUE 350; Contrast volume: 100 ml; Contrast route: INTRAVENOUS (IV); COMPARISON: CR XR CHEST 2V PA LATERAL 01/11/2023 11:09 PM FINDINGS: Liver: Normal. No mass. Gallbladder and bile ducts: Normal. No calcified stones. No ductal dilation. Pancreas: Normal. No ductal dilation. Spleen: Normal. No splenomegaly. Adrenal glands: Normal. No mass. Kidneys and ureters: Normal. No hydronephrosis. Stomach and bowel: Unremarkable. No obstruction. No mucosal thickening. Appendix: No evidence of appendicitis. Intraperitoneal space: Unremarkable. No free air. No significant fluid collection. Vasculature: Moderate diffuse atherosclerotic calcification and mural thrombus in the abdominal aorta. Mild fusiform dilation of the infrarenal abdominal aorta measuring 2.8 cm greatest diameter. No evidence of aortic dissection. Lymph nodes: Unremarkable. No enlarged lymph nodes. Urinary bladder: Unremarkable as visualized. Reproductive: Unremarkable as visualized. Bones/joints: Moderate degenerative disc changes, facet arthropathy and anterior osteophyte formation throughout the lumbar spine. No vertebral body compression or acute fracture. Moderate degenerative changes throughout the bony pelvis. Soft tissues: Unremarkable. IMPRESSION: No acute abnormality. Chronic osseous and atherosclerotic changes, including 2.8 cm abdominal aortic aneurysm Dictated and Authenticated by: Sher Thomas MD. Ordering:ANTONIO Belle MD
[2023-01-12] MEDS: Lactated Ringers 1,000 ML 75 ML IV ×2 (02:51→17:07)
[2023-01-12] MEDS: PIPERACILLIN/TAZO 3.375 GM in Normal Saline 50 ML IVPB ×3 (05:56→18:20)
[2023-01-12 07:34] LABS: Abs Immature Grans 1.19 10^3/uL (0.0-0.06); HCT 30.8 % (40.0-50.0); HGB 10.4 g/dL (13.5-17.5); MCH 30.5 pg (27.0-33.0); MCHC 33.8 % (32.0-36.0); MCV 90 fL (80-95); MPV 10.2 fL (8.0-11.0); RBC 3.41 10^6/uL (4.36-5.78); RDW 14.6 % (11.8-14.1); RDW-SD 47.8 fL
[2023-01-12 08:05] LABS: ALT 185 U/L (16-63); AST 86 U/L (15-37); Absolute Basophil Count 0.17 10^3/uL (0.0-0.2); Absolute Eosinophil Count 0.17 10^3/uL (0.0-0.7); Absolute Lymphocyte Count 1.85 10^3/uL (1.2-3.4); Absolute Monocyte Count 0.34 10^3/uL (0.1-0.8); Absolute Neutrophil Count 5.46 10^3/uL (1.2-6.7); Albumin 1.9 g/dL (3.4-5.0); Alkaline Phosphatase 79 U/L (46-116); Anion Gap 6.7 mmol/L (3-11); BUN 14 mg/dL (7-18); Bands % 1; Bilirubin, Total 0.5 mg/dL (0.2-1.0); CO2 27.3 mmol/L (21.0-32.0); Calcium 8.4 mg/dL (8.5-10.1); Chloride 101 mmol/L (98-107); Diff Comment Manual Differential; Estimated GFR 87.24 (mL/min/1.73m2); Glucose 121 mg/dL (74-106); Metamyelocytes % 2; Myelocytes % 1; Platelet Count 41 10^3/uL (130-400); Potassium 4.1 mmol/L (3.5-5.1); Promyelocytes % 2; RBC Morphology Normal; Sodium 135 mmol/L (136-145); Total Protein 6.3 g/dL (6.4-8.2)
[2023-01-12] MEDS: ACETAMINOPHEN 1,000 MG/100 ML BTL 400 MG IVPB ×2 (08:11→14:34)
[2023-01-12 08:17] LABS: C-Reactive Protein > 25.00 mg/dL (0.0-0.3)
--- NOTE | 2023-01-12 09:54 | PDOC.CMIN ---
Date of service: 01/12/23 Time of Service: 10:01 Care Management Initial Assmt Initial Assessment REASON FOR HOSPITALIZATION:: Skin Infection PREVIOUS FUNCTIONAL STATUS/SOCIAL/FAMILY SUPPORTS:: Andrez lives in [place] with his s/o, Renea. He has three sons who live locally. 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 CURRENT FUNCTIONAL STATUS:: Andrez was sitting up in bed when CM met with him. His son was in the room visiting. He reported that MD is attempting to transfer him to [facility], which he is agreeable to. He stated that he is hoping to have a better understanding of what is going on with his skin, as he feels that there are a lot of unknowns at this time. He reported that he has been out of work since December 30 due to this skin infection. He stated that he is independent in the community at baseline. CM will continue to follow. ADVANCE DIRECTIVES:: Not on file; CM will offer forms. Has patient been provided with info about the portal/API?: Yes Did the patient sign up for the portal?: No CODE STATUS:: Full Code INSURANCE COVERAGE / FINANCIAL ISSUES:: [employer]NI CURRENT HOME/COMMUNITY SERVICES/EQUIPMENT:: None PRIMARY CARE PHYSICIAN:: Conchita Parra POTENTIAL DISCHARGE NEEDS:: Evaluations for further needs, follow up appointments. PATIENT/FAMILY EDUCATION NEEDS:: Review discharge instructions and limitations, discussion of self care needs including ask me three. ANTICIPATED BARRIERS TO DISCHARGE:: None identified. TRANSPORTATION:: Via private vehicle by his . PLAN:: Per MD, Andrez will likely be transferred to [facility] for further care. He will transport via EMS, coordinated by RN injection molding supervisor. He will follow up with his PCP and discharge plan of care. CM will continue to follow. 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 (Acute) GERD (gastroesophageal reflux disease) (Chronic) Hyperlipidemia (Acute) Non-insulin treated type 2 diabetes mellitus (Acute) Acute lactic acidosis (Acute) Skin necrosis (Acute) Abscess of left arm (Acute) Abscess of right hand (Acute) Erythematous rash (Acute) Hyponatremia (Acute) Elevated LFTs (Acute) Hypoalbuminemia (Acute) Elevated INR (Acute) Thrombocytopenia (Chronic) Acute respiratory failure with hypoxia (Acute) Surgical History (Updated 01/12/23 @ 12:19 by Ara Jo MD) No pertinent past surgical history Family History (Updated 01/12/23 @ 12:22 by Ara Jo MD) Maternal Aunt No problems noted. Paternal Aunt Diabetes Hypertension Paternal Aunt Diabetes Hypertension Paternal Aunt Diabetes Hypertension Mother Cancer unknown type Sister Breast cancer Social History (Updated 01/12/23 @ 12:23 by Ara Jo MD) Smoking/Tobacco Use Status: Current every day Tobacco Type: cigarettes Smoking packs per day: 1.5 Smoking cigarettes per day: 30.0 Years smoked: 44 Smoking pack-years: 66.00 Tobacco: How many years used: 44 Quit status: not considering quitting Counseling given: provider counseling and patient declined Smoking risk assessment performed?: Yes Alcohol Intake: current Alcohol Intake frequency: holidays/special occasions only Substance use type: does not use Housing: house Do you feel safe at home: Yes Do you feel safe in your relationship?: Yes
--- NOTE | 2023-01-12 10:20 | SKI_PTH ---
PATIENT: Andrez Maya LOC: ICU U#:[id number] AGE/SX: 57/M ROOM: ICU.219 RE01/11/[address]: Jason Felix MD : 1965 BED: A DIS: 01/12/2023 SPEC #: [id number] RECD: 01/12/23 12:29 STATUS: MARGARITA REQ #: [id number] ANGIE: 01/12/23 10:[address]: Jason Felix DEPT: Surgical Specimen RECD BY: Ayana Garza ENTERED: 01/12/23 12:30 SP TYPE: STEVE CAAMRA DR: Conchita Parra, JOSEPHINE Tissues: 1 - SKIN BIOPSY(SHAVE/PUNCH) 2 - SKIN BIOPSY(SHAVE/PUNCH) Procedures: SKIN LEVEL 4 SPECIAL STAIN 1 Comments: [id number] (STAT) (PLEASE BURNS)
--- NOTE | 2023-01-12 10:43 | HPE_ITS ---
Date of service: 01/12/23 Time of Service: 10:43 Assessment and Plan Assessment and plan (1) Erythematous rash: Status: Acute Assessment and plan: - Favor some type of drug rash reaction possibly Pike-Denys reaction. CRP is greater than 25. There is no family history or personal history of allergies or reactions to medications. There is no family or personal history of immunologic diseases. The rash started approximately 2 to 3 days after patient was placed on metformin/omeprazole/atorvastatin which she started all at the same time. Biopsy was done 01/12/2023. The results went to [facility]. He is on prophylactic Zosyn as well. Steroids have not been initiated. -Given the anemia and the decreased platelet count, I am concerned that this represents some type of ongoing process that is leading to sepsis vs other . He has been accepted at [facility] to the medical ICU to the service of Dr. Dozier. Patient is currently COVID-negative Biopsies were done today and are going to [facility]. -Alternately this could be pyoderma gangrenosum. Patient has no personal family history of this disease. This document was created with voice activated software and may contain errors. 90 mins spent with the patient today. 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: Status: Acute (3) Emphysema/COPD: Status: Acute (4) Smoker: Status: Acute (5) AAA (abdominal aortic aneurysm) without rupture: Status: Acute Assessment and plan: 2.8cm (6) Bilateral inguinal hernia without obstruction or gangrene: Status: Acute (7) GERD (gastroesophageal reflux disease): Status: Chronic (8) Hyperlipidemia: Status: Acute (9) Non-insulin treated type 2 diabetes mellitus: Status: Acute (10) Hypoalbuminemia: Status: Acute (11) Elevated INR: Status: Acute (12) Thrombocytopenia: Status: Chronic (13) Elevated LFTs: Status: Acute (14) Fever: Status: Acute (15) Normocytic anemia: Status: Acute (16) Acute maculopapular rash: Status: Acute (17) Skin necrosis: Status: Acute (18) Elevated C-reactive protein (CRP): Status: Acute History of Present Illness Narrative: Patient is a 57-year-old male presenting to the ER last night with a rash and abscess of his arms. Patient stated around December 30 he was running a fever and went to the doctor. Somehow he was prescribed metformin, omeprazole, and atorvastatin. 2 or 3 days after he started those medications he developed a red macular rash. It started on his left arm. It is spread to his right arm and neck chest back and abdomen and face. He is continues to run a temperature. He went back to his primary care doctor who is who is unknown, And they prescribed doxycycline for him. The rash continued to progress until he came into the ER. He has multiple areas of erythematous 5 mm macular rash in varying degrees of erythema. Multiple of these have a cold last into large violaceous bulla on his left arm and hands. The one on the left arm is 10 x 10 cm. He did have bilateral arm CTs?see [facility] he also has a rash on his face par ticularly around his left eye. He denies noticing any changes in his left vision. He denies any oral lesions. He has not been having any abdominal pain. He has not been having any blood in in his stools. He does endorse a 16 pound weight loss, but I think this is since the rash started on December 30. He says the rash does not pruritic. There is no new pets in the home he has not traveled. The only change in his life was the addition of the new medication. He does not know if this started as a tick bite. He denies any environmental or food allergies. He denies any family history of immunologic disorders or skin diseases. He denies any prior history of skin problems. He drinks alcohol on a regular basis, but not daily. He smokes a pack a day. Prior to going to the physician, on December 30 he did not have any medical care and was on no medications. He has had no history of allergy to medications. He was not on any medications prior to December 30. Review of Systems Constitutional Constitutional: Reports body ache(s), Reports excessive sweating, Reports fatigue, Reports fever(s), Reports lethargy, Reports night sweats, Reports poor appetite and Reports weight loss Comments: -rash as previously documented No CP/SOB or productive cough no diarrhea. 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 (Acute) GERD (gastroesophageal reflux disease) (Chronic) Hyperlipidemia (Acute) Non-insulin treated type 2 diabetes mellitus (Acute) Acute lactic acidosis (Acute) Skin necrosis (Acute) Abscess of left arm (Acute) Abscess of right hand (Acute) Erythematous rash (Acute) Hyponatremia (Acute) Elevated LFTs (Acute) Hypoalbuminemia (Acute) Elevated INR (Acute) Thrombocytopenia (Chronic) Acute respiratory failure with hypoxia (Acute) Surgical History (Updated 01/12/23 @ 12:19 by Ara Jo MD) No pertinent past surgical history Family History (Updated 01/12/23 @ 12:22 by Ara Jo MD) Maternal Aunt No problems noted. Paternal Aunt Diabetes Hypertension Paternal Aunt Diabetes Hypertension Paternal Aunt Diabetes Hypertension Mother Cancer unknown type Sister Breast cancer Social History (Updated 01/12/23 @ 12:23 by Ara Jo MD) Smoking/Tobacco Use Status: Current every day Tobacco Type: cigarettes Smoking packs per day: 1.5 Smoking cigarettes per day: 30.0 Years smoked: 44 Smoking pack-years: 66.00 Tobacco: How many years used: 44 Quit status: not considering quitting Counseling given: provider counseling and patient declined Smoking risk assessment performed?: Yes Alcohol Intake: current Alcohol Intake frequency: holidays/special occasions only Substance use type: does not use Housing: house Do you feel safe at home: Yes Do you feel safe in your relationship?: Yes Meds Allergies and Home Medications Allergies Allergy/AdvReac Type Severity Reaction Status Date / Time No Known Allergies Allergy Unverified 01/12/23 00:02 Exam Const Nutritional Appearance: overweight Orientation: alert, awake and oriented x3 Other: PHYSICAL EXAM GENERAL APPEARANCE: Alert, oriented, x 3,? HEAD, EYES, EARS, NECK, THROAT: Head is normocephalic, pupils equal, round, reactive to light and accommodation, ocular movement intact, sclera clear and no jaundice. ?Dentition- poor LUNGS: normal respiration/normal chest excursion. ?Clear to auscultation bilaterally. ?No wheeze. ?HEART: Regular rate and rhythm. no murmurs EXTREMITY: Weeping edema left greater than right arms. He has violaceous rash on his left arm with bulla. This measures approximately 10 x 10 cm. He has a violaceous bulla on the left dorsal aspect of the hand that is approximately 4 x 4 cm. He has a erythematous macular rash in varying shades of erythema on his face neck torso and arms and low back. He says it was not pruritic ABDOMEN: soft and non-tender to palpation.? Normal bowel sounds.? No hernias.? Results Labs 01/12/23 07:24 01/12/23 07:24 Labs: Laboratory Results - last 24 hr 01/11/23 01/11/23 01/11/23 21:55 21:55 21:55 WBC RBC Hgb Hct MCV MCH MCHC RDW Plt Count MPV Immature Gran % Neutrophils % Band Neutrophils % Lymphocytes % Atypical Lymphs % Monocytes % Eosinophils % Basophils % Metamyelocytes % Myelocytes % Promyelocytes % Nucleated RBC % Absolute Neutrophils Absolute Lymphocytes Absolute Monocytes Absolute Eosinophils Absolute Basophils RBC Morphology Polychromasia PT INR VBG Lactate 1.9 H Sodium 133 L Potassium 3.9 Chloride 97 L Carbon Dioxide 28.9 Anion Gap 7.1 BUN 18 Creatinine 1.1 Est GFR (CKD-EPI 2020) 77.81 Glucose 150 H Calcium 8.8 Magnesium 2.0 Total Bilirubin 0.4 AST 89 H ALT 215 H Alkaline Phosphatase 91 C-Reactive Protein Total Protein 7.1 Albumin 2.2 L Urine Color Urine Clarity Urine pH Ur Specific [place] Urine Protein Urine Ketones Urine Blood Urine Nitrite Urine Bilirubin Urine Urobilinogen Ur Leukocyte Esterase Urine RBC Urine WBC Ur Epithelial Cells Urine Crystals Urine Bacteria Urine Mucus Ur Culture Indicated? Urine Glucose COVID-19 Source SARS-CoV-2 (PCR) HIV 1&2 Antibody Rapid 01/11/23 01/11/23 01/11/23 21:55 21:55 21:55 WBC 8.57 RBC 3.71 L Hgb 11.4 L Hct 33.9 L MCV 91 MCH 30.7 MCHC 33.6 RDW 14.3 H Plt Count 45 L MPV 10.0 Immature Gran % See Differential Neutrophils % 62.0 Band Neutrophils % 3 Lymphocytes % 12.0 Atypical Lymphs % 13 Monocytes % 0.0 Eosinophils % 0.0 Basophils % 0.0 Metamyelocytes % 2 Myelocytes % 6 Promyelocytes % 2 Nucleated RBC % 2.0 H Absolute Neutrophils 5.57 Absolute Lymphocytes 2.14 Absolute Monocytes 0.00 L Absolute Eosinophils 0.00 Absolute Basophils 0.00 RBC Morphology See Below Polychromasia Present PT 15.4 H INR 1.5 H VBG Lactate Sodium Potassium Chloride Carbon Dioxide Anion Gap BUN Creatinine Est GFR (CKD-EPI 2020) Glucose Calcium Magnesium Total Bilirubin AST ALT Alkaline Phosphatase C-Reactive Protein Total Protein Albumin Urine Color Urine Clarity Urine pH Ur Specific [place] Urine Protein Urine Ketones Urine Blood Urine Nitrite Urine Bilirubin Urine Urobilinogen Ur Leukocyte Esterase Urine RBC Urine WBC Ur Epithelial Cells Urine Crystals Urine Bacteria Urine Mucus Ur Culture Indicated? Urine Glucose COVID-19 Source SARS-CoV-2 (PCR) HIV 1&2 Antibody Rapid Negative 01/11/23 01/12/23 01/12/23 23:55 00:20 07:24 WBC 8.40 RBC 3.41 L Hgb 10.4 L Hct 30.8 L MCV 90 MCH 30.5 MCHC 33.8 RDW 14.6 H Plt Count 41 L MPV 10.2 Immature Gran % See Differential Neutrophils % 64.0 Band Neutrophils % 1 Lymphocytes % 22.0 Atypical Lymphs % Monocytes % 4.0 Eosinophils % 2.0 Basophils % 2.0 Metamyelocytes % 2 Myelocytes % 1 Promyelocytes % 2 Nucleated RBC % 3.0 H Absolute Neutrophils 5.46 Absolute Lymphocytes 1.85 Absolute Monocytes 0.34 Absolute Eosinophils 0.17 Absolute Basophils 0.17 RBC Morphology Normal Polychromasia PT INR VBG Lactate Sodium Potassium Chloride Carbon Dioxide Anion Gap BUN Creatinine Est GFR (CKD-EPI 2020) Glucose Calcium Magnesium Total Bilirubin AST ALT Alkaline Phosphatase C-Reactive Protein Total Protein Albumin Urine Color Yellow Urine Clarity Sl Cloudy Urine pH 6.0 Ur Specific [place] 1.015 Urine Protein 100 H Urine Ketones Negative Urine Blood Negative Urine Nitrite Negative Urine Bilirubin Negative Urine Urobilinogen 2.0 H Ur Leukocyte Esterase Negative Urine RBC 0-2 Urine WBC 0-2 Ur Epithelial Cells Rare Urine Crystals Negative Urine Bacteria Rare Urine Mucus Trace Ur Culture Indicated? No Urine Glucose Negative COVID-19 Source Nasal/Nares SARS-CoV-2 (PCR) Negative HIV 1&2 Antibody Rapid 01/12/23 01/12/23 07:24 07:24 WBC RBC Hgb Hct MCV MCH MCHC RDW Plt Count MPV Immature Gran % Neutrophils % Band Neutrophils % Lymphocytes % Atypical Lymphs % Monocytes % Eosinophils % Basophils % Metamyelocytes % Myelocytes % Promyelocytes % Nucleated RBC % Absolute Neutrophils Absolute Lymphocytes Absolute Monocytes Absolute Eosinophils Absolute Basophils RBC Morphology Polychromasia PT INR VBG Lactate Sodium 135 L Potassium 4.1 Chloride 101 Carbon Dioxide 27.3 Anion Gap 6.7 BUN 14 Creatinine 1.0 Est GFR (CKD-EPI 2020) 87.24 Glucose 121 H Calcium 8.4 L Magnesium Total Bilirubin 0.5 AST 86 H ALT 185 H Alkaline Phosphatase 79 C-Reactive Protein > 25.00 H Total Protein 6.3 L Albumin 1.9 L Urine Color Urine Clarity Urine pH Ur Specific [place] Urine Protein Urine Ketones Urine Blood Urine Nitrite Urine Bilirubin Urine Urobilinogen Ur Leukocyte Esterase Urine RBC Urine WBC Ur Epithelial Cells Urine Crystals Urine Bacteria Urine Mucus Ur Culture Indicated? Urine Glucose COVID-19 Source SARS-CoV-2 (PCR) HIV 1&2 Antibody Rapid Last Vital Signs Temp 38.2 C H 01/12/23 08:11 Pulse 115 H 01/12/23 08:13 Resp 21 01/12/23 01:34 BP 139/72 01/12/23 08:13 Pulse Ox 91 L 01/12/23 08:13 Time Spent Time spent with Patient: >75 minutes Time was spent: preparing to see the patient(eg.review tests), obtaining and/or reviewing separately otained hiistory, ordering medications,tests, procedures, referring, communicating with other health home care liaison, indepentently interpreting results, counseling the patient and care coordination
--- NOTE | 2023-01-12 10:50 | MCONE_ITS ---
Date of service: 01/12/23 Time of Service: 10:30 Assessment and Plan Assessment and plan (1) Skin necrosis: Status: Acute (2) Acute maculopapular rash: Status: Acute (3) AAA (abdominal aortic aneurysm) without rupture: Status: Acute (4) Thrombocytopenia: Status: Chronic (5) Normocytic anemia: Status: Acute (6) Fever: Status: Acute (7) Acute respiratory failure with hypoxia: Status: Acute (8) Acute lactic acidosis: Status: Acute (9) Non-insulin treated type 2 diabetes mellitus: Status: Acute (10) Hyperlipidemia: Status: Acute (11) GERD (gastroesophageal reflux disease): Status: Chronic (12) Emphysema/COPD: Status: Acute (13) Smoker: Status: Acute (14) Hypoalbuminemia: Status: Acute (15) Elevated INR: Status: Acute (16) Elevated LFTs: Status: Acute (17) Hyponatremia: Status: Acute Assessment and plan: While the rash may be due to a drug reaction, I am concerned that his fever and weight loss preceded any new medications. Additionally, the rash is getting worse since admission. Photos of the biggest lesions that were shown to me look necrotic. Pyoderma gangrenosum could be considered. My concern is that he could have an underlying auto-immune or malignant process. Rash could be a paraneoplastic syndrome as well. Atypical lymphocytes on the smear are nonspecific, but are concerning. Unfortunately, without knowing his skin biopsy results, it is difficult to suggest a treatment other than consideration of steroids. I do strongly feel that this patient would benefit from a transfer to a tertiary care facility with dermatology available. I am not sure that antibiotics have a role right now, but they are a good idea while cultures are pending. Agree with the autoimmune workup. Agree with the tick-borne illness workup. Agree with HIV/hepatitis workup. Will need vascular surgery follow up for the AAA as well. History of Present Illness History of Present Illness Chief Complaint: An itchy rash, fevers, weight loss Narrative: Mr Maya is a 57 year old male with PMHx of NIDDM2, hyperlipidemia, GERD, obesity, who was admitted to [facility] surgical service on 01/11/23 for abscesses of BUEs (R hand, L arm). The patient states that, before any skin lesions appeared, he had had a fever daily and unintentional weight loss of 16 lbs over the course of 1 month. He states that the fevers were associated with night sweats. He went to see a doctor for the fevers. On that visit, he was prescribed omeprazole, atorvastatin, and metformin, which he started taking on 12/30/22. He is not sure how many days after this he noticed a skin infection, for which he went to see his PCP again and was started on doxycycline. The patient states that the lesions spread, despite being on doxycycline. It is not pruritic everywhere, but is in some places. Denies sun exposure. They lesions are now on his trunk, both front and back, his neck, his BUEs. The most impressive of these lesions are on R hand and L forearm. The patient states that the facial lesions we are observing around his eyes today were not there yesterday. He denies any ulcerations/sores in his mouth, his eyes are not dry, denies sore throat/runny nose, arthralgias. He does smoke (1.5 ppd x 44 years). He has never had a colonoscopy and was about to meet for a preop appointment for that. There is no personal or family history of autoimmune diseases. In our emergency department, the patient had CTs of BUEs showing cellulitis w/o evidence of abscess or vascular occlusion in either arm. He does appear to have a mural thrombus within the abdominal aorta with minimal dilatation. The patient had been started on empiric vancomycin/zosyn. However, today's surgical evaluation was more consistent with a drug reaction. The patient had a skin biopsy, the results of which are not yet available. Because there is evidence of thrombocytopenia (plts of 41), there is a suspicion of a more systemic illness at this time. Hospitalist consultation was requested while transfer to a tertiary care facility is sought. The patient denies blood in stool. Stools have been brown. Overnight, the patient desaturated to the 80s, was saturating 87% on 1L, so he is now on 2L, even while awake. He tested negative for COVID-19 in the ER. 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 (Acute) GERD (gastroesophageal reflux disease) (Chronic) Hyperlipidemia (Acute) Non-insulin treated type 2 diabetes mellitus (Acute) Acute lactic acidosis (Acute) Skin necrosis (Acute) Abscess of left arm (Acute) Abscess of right hand (Acute) Erythematous rash (Acute) Hyponatremia (Acute) Elevated LFTs (Acute) Hypoalbuminemia (Acute) Elevated INR (Acute) Thrombocytopenia (Chronic) Acute respiratory failure with hypoxia (Acute) Surgical History (Updated 01/12/23 @ 12:19 by Ara Jo MD) No pertinent past surgical history Family History (Updated 01/12/23 @ 12:22 by Ara Jo MD) Maternal Aunt No problems noted. Paternal Aunt Diabetes Hypertension Paternal Aunt Diabetes Hypertension Paternal Aunt Diabetes Hypertension Mother Cancer unknown type Sister Breast cancer Social History (Updated 01/12/23 @ 12:23 by Ara Jo MD) Smoking/Tobacco Use Status: Current every day Tobacco Type: cigarettes Smoking packs per day: 1.5 Smoking cigarettes per day: 30.0 Years smoked: 44 Smoking pack-years: 66.00 Tobacco: How many years used: 44 Quit status: not considering quitting Counseling given: provider counseling and patient declined Smoking risk assessment performed?: Yes Alcohol Intake: current Alcohol Intake frequency: holidays/special occasions only Substance use type: does not use Housing: house Do you feel safe at home: Yes Do you feel safe in your relationship?: Yes Exam Narrative Exam Narrative: General: Pleasant obese male who is sitting up at the side of the bed, A&Ox3, on 2L of O2 by NC Neurological: A&Ox3, no focal deficits Psychiatric: Appropriate speech pattern/content Skin: maculo-papular rash visible on face (around B eyes, L>R), neck (R<L), BUEs. The biggest lesions on BUEs are dressed. Numerous lesions of about 1 cm diameter on BUEs, one lesion on 2nd digit RUE. Discolored broken fingernail with subungal hematoma 5th digit LUE, numerous smaller lesions on torso (both front and back) HEENT: Atraumatic, normocephalic, EOMI, dry MM, no oral lesions, see skin exam, no submandibular or cervical lymphadenopathy, no goiter or JVD Cardiovascular: RRR, no m/r/g Lungs: CTAB Gastrointestinal: soft, nontender, nondistended Genitourinary: deferred (per nursing/patient, there are no lesions) Extremities: no edema BLEs, no lesions BLEs Results Last Vital Signs Temp 38.2 C H 01/12/23 08:11 Pulse 115 H 01/12/23 08:13 Resp 21 01/12/23 01:34 BP 139/72 01/12/23 08:13 Pulse Ox 91 L 01/12/23 08:13 Labs 01/12/23 07:24 01/12/23 07:24 Labs: Laboratory Results - last 24 hr 01/11/23 01/11/23 01/11/23 21:55 21:55 21:55 WBC RBC Hgb Hct MCV MCH MCHC RDW Plt Count MPV Immature Gran % Neutrophils % Band Neutrophils % Lymphocytes % Atypical Lymphs % Monocytes % Eosinophils % Basophils % Metamyelocytes % Myelocytes % Promyelocytes % Nucleated RBC % Absolute Neutrophils Absolute Lymphocytes Absolute Monocytes Absolute Eosinophils Absolute Basophils RBC Morphology Polychromasia PT INR VBG Lactate 1.9 H Sodium 133 L Potassium 3.9 Chloride 97 L Carbon Dioxide 28.9 Anion Gap 7.1 BUN 18 Creatinine 1.1 Est GFR (CKD-EPI 2020) 77.81 Glucose 150 H Calcium 8.8 Magnesium 2.0 Total Bilirubin 0.4 AST 89 H ALT 215 H Alkaline Phosphatase 91 C-Reactive Protein Total Protein 7.1 Albumin 2.2 L Urine Color Urine Clarity Urine pH Ur Specific [place] Urine Protein Urine Ketones Urine Blood Urine Nitrite Urine Bilirubin Urine Urobilinogen Ur Leukocyte Esterase Urine RBC Urine WBC Ur Epithelial Cells Urine Crystals Urine Bacteria Urine Mucus Ur Culture Indicated? Urine Glucose COVID-19 Source SARS-CoV-2 (PCR) HIV 1&2 Antibody Rapid 01/11/23 01/11/23 01/11/23 21:55 21:55 21:55 WBC 8.57 RBC 3.71 L Hgb 11.4 L Hct 33.9 L MCV 91 MCH 30.7 MCHC 33.6 RDW 14.3 H Plt Count 45 L MPV 10.0 Immature Gran % See Differential Neutrophils % 62.0 Band Neutrophils % 3 Lymphocytes % 12.0 Atypical Lymphs % 13 Monocytes % 0.0 Eosinophils % 0.0 Basophils % 0.0 Metamyelocytes % 2 Myelocytes % 6 Promyelocytes % 2 Nucleated RBC % 2.0 H Absolute Neutrophils 5.57 Absolute Lymphocytes 2.14 Absolute Monocytes 0.00 L Absolute Eosinophils 0.00 Absolute Basophils 0.00 RBC Morphology See Below Polychromasia Present PT 15.4 H INR 1.5 H VBG Lactate Sodium Potassium Chloride Carbon Dioxide Anion Gap BUN Creatinine Est GFR (CKD-EPI 2020) Glucose Calcium Magnesium Total Bilirubin AST ALT Alkaline Phosphatase C-Reactive Protein Total Protein Albumin Urine Color Urine Clarity Urine pH Ur Specific [place] Urine Protein Urine Ketones Urine Blood Urine Nitrite Urine Bilirubin Urine Urobilinogen Ur Leukocyte Esterase Urine RBC Urine WBC Ur Epithelial Cells Urine Crystals Urine Bacteria Urine Mucus Ur Culture Indicated? Urine Glucose COVID-19 Source SARS-CoV-2 (PCR) HIV 1&2 Antibody Rapid Negative 01/11/23 01/12/23 01/12/23 23:55 00:20 07:24 WBC 8.40 RBC 3.41 L Hgb 10.4 L Hct 30.8 L MCV 90 MCH 30.5 MCHC 33.8 RDW 14.6 H Plt Count 41 L MPV 10.2 Immature Gran % See Differential Neutrophils % 64.0 Band Neutrophils % 1 Lymphocytes % 22.0 Atypical Lymphs % Monocytes % 4.0 Eosinophils % 2.0 Basophils % 2.0 Metamyelocytes % 2 Myelocytes % 1 Promyelocytes % 2 Nucleated RBC % 3.0 H Absolute Neutrophils 5.46 Absolute Lymphocytes 1.85 Absolute Monocytes 0.34 Absolute Eosinophils 0.17 Absolute Basophils 0.17 RBC Morphology Normal Polychromasia PT INR VBG Lactate Sodium Potassium Chloride Carbon Dioxide Anion Gap BUN Creatinine Est GFR (CKD-EPI 2020) Glucose Calcium Magnesium Total Bilirubin AST ALT Alkaline Phosphatase C-Reactive Protein Total Protein Albumin Urine Color Yellow Urine Clarity Sl Cloudy Urine pH 6.0 Ur Specific [place] 1.015 Urine Protein 100 H Urine Ketones Negative Urine Blood Negative Urine Nitrite Negative Urine Bilirubin Negative Urine Urobilinogen 2.0 H Ur Leukocyte Esterase Negative Urine RBC 0-2 Urine WBC 0-2 Ur Epithelial Cells Rare Urine Crystals Negative Urine Bacteria Rare Urine Mucus Trace Ur Culture Indicated? No Urine Glucose Negative COVID-19 Source Nasal/Nares SARS-CoV-2 (PCR) Negative HIV 1&2 Antibody Rapid 01/12/23 01/12/23 07:24 07:24 WBC RBC Hgb Hct MCV MCH MCHC RDW Plt Count MPV Immature Gran % Neutrophils % Band Neutrophils % Lymphocytes % Atypical Lymphs % Monocytes % Eosinophils % Basophils % Metamyelocytes % Myelocytes % Promyelocytes % Nucleated RBC % Absolute Neutrophils Absolute Lymphocytes Absolute Monocytes Absolute Eosinophils Absolute Basophils RBC Morphology Polychromasia PT INR VBG Lactate Sodium 135 L Potassium 4.1 Chloride 101 Carbon Dioxide 27.3 Anion Gap 6.7 BUN 14 Creatinine 1.0 Est GFR (CKD-EPI 2020) 87.24 Glucose 121 H Calcium 8.4 L Magnesium Total Bilirubin 0.5 AST 86 H ALT 185 H Alkaline Phosphatase 79 C-Reactive Protein > 25.00 H Total Protein 6.3 L Albumin 1.9 L Urine Color Urine Clarity Urine pH Ur Specific [place] Urine Protein Urine Ketones Urine Blood Urine Nitrite Urine Bilirubin Urine Urobilinogen Ur Leukocyte Esterase Urine RBC Urine WBC Ur Epithelial Cells Urine Crystals Urine Bacteria Urine Mucus Ur Culture Indicated? Urine Glucose COVID-19 Source SARS-CoV-2 (PCR) HIV 1&2 Antibody Rapid Imaging Additional studies: CXR: No acute abnormality.? CT chest/BUE's/abdomen/pelvis: 1. Chest CT: No evidence of pulmonary embolism or aortic dissection.? Question minimal right upper lobe anterior infiltrate versus scarring or atelectasis.? Trace pericardial effusion. 2. Abdomen pelvic CT: No acute abdominal or pelvic process.? ? Minimal dilatation of the abdominal aorta with mural thrombus to 2.8 cm. 3. Upper extremities:: Cellulitis.? No evidence of abscess.? No vascular oc clusion.
--- NOTE | 2023-01-12 14:05 | CHAPLAIN ---
Andrez was resting in bed with several blankets on. He son was with her. Andrez said he is waiting [facility] be [facility]. I explained my role and offered support.
--- NOTE | 2023-01-12 14:48 | DSE_ITS ---
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 (2) Acute maculopapular rash: Status: Acute (3) AAA (abdominal aortic aneurysm) without rupture: Status: Acute (4) Thrombocytopenia: Status: Chronic (5) Normocytic anemia: Status: Acute (6) Fever: Status: Acute (7) Acute respiratory failure with hypoxia: Status: Acute (8) Acute lactic acidosis: Status: Acute (9) Non-insulin treated type 2 diabetes mellitus: Status: Acute (10) Hyperlipidemia: Status: Acute (11) GERD (gastroesophageal reflux disease): Status: Chronic (12) Emphysema/COPD: Status: Acute (13) Smoker: Status: Acute (14) Hypoalbuminemia: Status: Acute (15) Elevated INR: Status: Acute (16) Elevated LFTs: Status: Acute (17) Hyponatremia: Status: Acute (18) Erythematous rash: Status: Acute (19) 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 He also has radiating consumptive coagulopathy/elevated LFTs/elevated CRP. This started 2 to 3 days after he started a combination of all new medications that included: Metformin/atorvastatin/omeprazole. He has no history of allergies or skin reactions or other autoimmune disorders. Biopsy was performed and is pending/it was sent to [facility] and Dr. Spear. Patient continues to spike high fevers he is on Tylenol. He is receiving receiving prophylactic Zosyn. He had a CT of bilateral arms which showed no gas or fluid collections. CRP is greater than 25. Platelets are down to 41 and hemoglobin is 10.4. He is a daily EtOH use and pack-a-day smoker. He otherwise does not seek medical care. These were initiation of new medications for him and he is not currently on any medications. There is concern that this represents a Pike-Denys type reaction versus acute pyoderma gangrenosum and patient is being transferred to [facility] to the MICU to the service Discharge Instructions Activity:: bedrest Equipment/Supplies:: No Equipment Needed Diet:: Carb Counting DS: Summary Time Spent with Patient providing and/or coordinating discharge services: Greater than 30 minutes Status at Discharge Functional status at discharge: wheelchair bound Overall status at discharge: other (critical ) Mental Status: mental status grossly normal Speech and Movement: speech and movement normal Mood: anxious mood Affect: normal affect Exam Psych Mental Status: mental status grossly normal Speech and Movement: speech and movement normal Mood: anxious mood Affect: normal affect DS: Data Vitals/I&O Vitals and I&O: Vital Signs Temperature 40.9 C H 01/12/23 14:44 Temperature Source Temporal Artery Scan 01/12/23 14:44 Pulse 116 H 01/12/23 14:16 Pulse Rhythm Regular 01/12/23 07:45 Pulse 109 H 01/12/23 01:30 Respiratory Rate 21 01/12/23 01:34 Respiratory Effort Normal, Non-Labored 01/12/23 07:45 Respiratory Depth Normal 01/12/23 07:45 Respiratory Pattern Normal 01/12/23 07:45 Blood Pressure 140/69 01/12/23 14:16 Blood Pressure Mean 87 01/12/23 14:16 Blood Pressure Position Supine 01/12/23 02:00 Pulse Oximetry 93 01/12/23 13:29 Oxygen Delivery Method Nasal Cannula 01/12/23 14:44 Oxygen Flow Rate 2 01/12/23 14:44 Pain Level 0 01/12/23 10:51 Comment Patient felt hot so I took another temperature, reported results to the provider and nurse. 01/11/23 23:51 Intake & Output 01/11/23 01/12/23 01/12/23 23:59 11:59 23:59 Intake Total 1150 / 1150 700 / 750 50 / 750 Output Total 875 / 875 Balance 1150 / 1150 -175 / -125 50 / -125 Weight 94.801 kg 95.3 kg Intake: IV 1150 / 1150 700 / 750 50 / 750 Output: Urine 875 / 875 Other: Urine Color Yellow Urine Appearance Clear Urine Odor None Voiding Methods Urinal Data Completed and Pending Labs on day of discharge: Labs from last 24 hours 01/12/23 01/12/23 01/12/23 Unknown 07:32 07:24 WBC RBC Hgb Hct MCV MCH MCHC RDW Plt Count MPV Immature Gran % Neutrophils % Band Neutrophils % Lymphocytes % Atypical Lymphs % Monocytes % Eosinophils % Basophils % Metamyelocytes % Myelocytes % Promyelocytes % Nucleated RBC % Absolute Neutrophils Absolute Lymphocytes Absolute Monocytes Absolute Eosinophils Absolute Basophils RBC Morphology Polychromasia PT INR VBG Lactate Sodium Potassium Chloride Carbon Dioxide Anion Gap BUN Creatinine Est GFR (CKD-EPI 2020) Glucose Calcium Magnesium Total Bilirubin AST ALT Alkaline Phosphatase C-Reactive Protein > 25.00 H Total Protein Albumin Urine Color Urine Clarity Urine pH Ur Specific [place] Urine Protein Urine Ketones Urine Blood Urine Nitrite Urine Bilirubin Urine Urobilinogen Ur Leukocyte Esterase Urine RBC Urine WBC Ur Epithelial Cells Urine Crystals Urine Bacteria Urine Mucus Ur Culture Indicated? Urine Glucose Serum Cryoglobulins Pending Rheumatoid Factor Pending REBECA Titer REBECA Titer 2 REBECA Titer 3 REBECA Cytoplasm Pattern REBECA Pattern REBECA Pattern 2 REBECA (Hep-2) REBECA Comment REBECA Interpretation Proteinase 3 (PR3) Pending Myeloperoxidase Ab Pending Sm (Felix) Antibody MOT[employer]AMINER Antibody B. divergens/MO-1 PCR Babesia duncani (PCR) Babesia microti DNA PCR Lyme Disease Antibody COVID-19 Source SARS-CoV-2 (PCR) E.chaffeensis DNA (PCR) E.ewingii/canis DNA PCR E.muris eauclairensis (PCR) Hepatitis A IgM Ab Pending Hep Bs Antigen Pending Hep B Core Total Ab Pending Hepatitis C Antibody Pending HIV 1&2 Ag/Ab, 4th Gen HIV 1&2 Antibody Rapid A. phagocytophilum (PCR) Blood B. miyamotoi (PCR) 01/12/23 01/12/23 01/12/23 07:24 07:24 07:24 WBC RBC Hgb Hct MCV MCH MCHC RDW Plt Count MPV Immature Gran % Neutrophils % Band Neutrophils % Lymphocytes % Atypical Lymphs % Monocytes % Eosinophils % Basophils % Metamyelocytes % Myelocytes % Promyelocytes % Nucleated RBC % Absolute Neutrophils Absolute Lymphocytes Absolute Monocytes Absolute Eosinophils Absolute Basophils RBC Morphology Polychromasia PT INR VBG Lactate Sodium 135 L Potassium 4.1 Chloride 101 Carbon Dioxide 27.3 Anion Gap 6.7 BUN 14 Creatinine 1.0 Est GFR (CKD-EPI 2020) 87.24 Glucose 121 H Calcium 8.4 L Magnesium Total Bilirubin 0.5 AST 86 H ALT 185 H Alkaline Phosphatase 79 C-Reactive Protein Total Protein 6.3 L Albumin 1.9 L Urine Color Urine Clarity Urine pH Ur Specific [place] Urine Protein Urine Ketones Urine Blood Urine Nitrite Urine Bilirubin Urine Urobilinogen Ur Leukocyte Esterase Urine RBC Urine WBC Ur Epithelial Cells Urine Crystals Urine Bacteria Urine Mucus Ur Culture Indicated? Urine Glucose Serum Cryoglobulins Rheumatoid Factor REBECA Titer Pending REBECA Titer 2 Pending REBECA Titer 3 Pending REBECA Cytoplasm Pattern Pending REBECA Pattern Pending REBECA Pattern 2 Pending REBECA (Hep-2) Pending REBECA Comment Pending REBECA Interpretation Pending Proteinase 3 (PR3) Myeloperoxidase Ab Sm (Felix) Antibody Pending [employer]ER Antibody Pending B. divergens/MO-1 PCR Babesia duncani (PCR) Babesia microti DNA PCR Lyme Disease Antibody COVID-19 Source SARS-CoV-2 (PCR) E.chaffeensis DNA (PCR) E.ewingii/canis DNA PCR E.muris eauclairensis (PCR) Hepatitis A IgM Ab Hep Bs Antigen Hep B Core Total Ab Hepatitis C Antibody HIV 1&2 Ag/Ab, 4th Gen HIV 1&2 Antibody Rapid A. phagocytophilum (PCR) Blood B. miyamotoi (PCR) 01/12/23 01/12/23 01/11/23 07:24 00:20 23:55 WBC 8.40 RBC 3.41 L Hgb 10.4 L Hct 30.8 L MCV 90 MCH 30.5 MCHC 33.8 RDW 14.6 H Plt Count 41 L MPV 10.2 Immature Gran % See Differential Neutrophils % 64.0 Band Neutrophils % 1 Lymphocytes % 22.0 Atypical Lymphs % Monocytes % 4.0 Eosinophils % 2.0 Basophils % 2.0 Metamyelocytes % 2 Myelocytes % 1 Promyelocytes % 2 Nucleated RBC % 3.0 H Absolute Neutrophils 5.46 Absolute Lymphocytes 1.85 Absolute Monocytes 0.34 Absolute Eosinophils 0.17 Absolute Basophils 0.17 RBC Morphology Normal Polychromasia PT INR VBG Lactate Sodium Potassium Chloride Carbon Dioxide Anion Gap BUN Creatinine Est GFR (CKD-EPI 2020) Glucose Calcium Magnesium Total Bilirubin AST ALT Alkaline Phosphatase C-Reactive Protein Total Protein Albumin Urine Color Yellow Urine Clarity Sl Cloudy Urine pH 6.0 Ur Specific [place] 1.015 Urine Protein 100 H Urine Ketones Negative Urine Blood Negative Urine Nitrite Negative Urine Bilirubin Negative Urine Urobilinogen 2.0 H Ur Leukocyte Esterase Negative Urine RBC 0-2 Urine WBC 0-2 Ur Epithelial Cells Rare Urine Crystals Negative Urine Bacteria Rare Urine Mucus Trace Ur Culture Indicated? No Urine Glucose Negative Serum Cryoglobulins Rheumatoid Factor REBECA Titer REBECA Titer 2 REBECA Titer 3 REBECA Cytoplasm Pattern REBECA Pattern REBECA Pattern 2 REBECA (Hep-2) REBECA Comment REBECA Interpretation Proteinase 3 (PR3) Myeloperoxidase Ab Sm (Felix) Antibody MOT[employer] EX[employer]INER Antibody B. divergens/MO-1 PCR Babesia duncani (PCR) Babesia microti DNA PCR Lyme Disease Antibody COVID-19 Source Nasal/Nares SARS-CoV-2 (PCR) Negative E.chaffeensis DNA (PCR) E.ewingii/canis DNA PCR E.muris eauclairensis (PCR) Hepatitis A IgM Ab Hep Bs Antigen Hep B Core Total Ab Hepatitis C Antibody HIV 1&2 Ag/Ab, 4th Gen HIV 1&2 Antibody Rapid A. phagocytophilum (PCR) Blood B. miyamotoi (PCR) 01/11/23 01/11/23 01/11/23 22:20 21:55 21:55 WBC RBC Hgb Hct MCV MCH MCHC RDW Plt Count MPV Immature Gran % Neutrophils % Band Neutrophils % Lymphocytes % Atypical Lymphs % Monocytes % Eosinophils % Basophils % Metamyelocytes % Myelocytes % Promyelocytes % Nucleated RBC % Absolute Neutrophils Absolute Lymphocytes Absolute Monocytes Absolute Eosinophils Absolute Basophils RBC Morphology Polychromasia PT INR VBG Lactate Sodium Potassium Chloride Carbon Dioxide Anion Gap BUN Creatinine Est GFR (CKD-EPI 2020) Glucose Calcium Magnesium Total Bilirubin AST ALT Alkaline Phosphatase C-Reactive Protein Total Protein Albumin Urine Color Urine Clarity Urine pH Ur Specific [place] Urine Protein Urine Ketones Urine Blood Urine Nitrite Urine Bilirubin Urine Urobilinogen Ur Leukocyte Esterase Urine RBC Urine WBC Ur Epithelial Cells Urine Crystals Urine Bacteria Urine Mucus Ur Culture Indicated? Urine Glucose Serum Cryoglobulins Rheumatoid Factor REBECA Titer REBECA Titer 2 REBECA Titer 3 REBECA Cytoplasm Pattern REBECA Pattern REBECA Pattern 2 REBECA (Hep-2) REBECA Comment REBECA Interpretation Proteinase 3 (PR3) Myeloperoxidase Ab Sm (Felix) Antibody [employer] EX[employer]INER Antibody B. divergens/MO-1 PCR Pending Babesia duncani (PCR) Pending Babesia microti DNA PCR Pending Lyme Disease Antibody Pending COVID-19 Source SARS-CoV-2 (PCR) E.chaffeensis DNA (PCR) Pending E.ewingii/canis DNA PCR Pending E.muris eauclairensis (PCR) Pending Hepatitis A IgM Ab Hep Bs Antigen Hep B Core Total Ab Hepatitis C Antibody HIV 1&2 Ag/Ab, 4th Gen Pending HIV 1&2 Antibody Rapid Negative A. phagocytophilum (PCR) Pending Blood B. miyamotoi (PCR) Pending 01/11/23 01/11/23 01/11/23 21:55 21:55 21:55 WBC 8.57 RBC 3.71 L Hgb 11.4 L Hct 33.9 L MCV 91 MCH 30.7 MCHC 33.6 RDW 14.3 H Plt Count 45 L MPV 10.0 Immature Gran % See Differential Neutrophils % 62.0 Band Neutrophils % 3 Lymphocytes % 12.0 Atypical Lymphs % 13 Monocytes % 0.0 Eosinophils % 0.0 Basophils % 0.0 Metamyelocytes % 2 Myelocytes % 6 Promyelocytes % 2 Nucleated RBC % 2.0 H Absolute Neutrophils 5.57 Absolute Lymphocytes 2.14 Absolute Monocytes 0.00 L Absolute Eosinophils 0.00 Absolute Basophils 0.00 RBC Morphology See Below Polychromasia Present PT 15.4 H INR 1.5 H VBG Lactate 1.9 H Sodium Potassium Chloride Carbon Dioxide Anion Gap BUN Creatinine Est GFR (CKD-EPI 2020) Glucose Calcium Magnesium Total Bilirubin AST ALT Alkaline Phosphatase C-Reactive Protein Total Protein Albumin Urine Color Urine Clarity Urine pH Ur Specific [place] Urine Protein Urine Ketones Urine Blood Urine Nitrite Urine Bilirubin Urine Urobilinogen Ur Leukocyte Esterase Urine RBC Urine WBC Ur Epithelial Cells Urine Crystals Urine Bacteria Urine Mucus Ur Culture Indicated? Urine Glucose Serum Cryoglobulins Rheumatoid Factor REBECA Titer REBECA Titer 2 REBECA Titer 3 REBECA Cytoplasm Pattern REBECA Pattern REBECA Pattern 2 REBECA (Hep-2) REBECA Comment REBECA Interpretation Proteinase 3 (PR3) Myeloperoxidase Ab Sm (Felix) Antibody MOT[employer]LE EXAMINER Antibody B. divergens/MO-1 PCR Babesia duncani (PCR) Babesia microti DNA PCR Lyme Disease Antibody COVID-19 Source SARS-CoV-2 (PCR) E.chaffeensis DNA (PCR) E.ewingii/canis DNA PCR E.muris eauclairensis (PCR) Hepatitis A IgM Ab Hep Bs Antigen Hep B Core Total Ab Hepatitis C Antibody HIV 1&2 Ag/Ab, 4th Gen HIV 1&2 Antibody Rapid A. phagocytophilum (PCR) Blood B. miyamotoi (PCR) 01/11/23 01/11/23 21:55 21:55 WBC RBC Hgb Hct MCV MCH MCHC RDW Plt Count MPV Immature Gran % Neutrophils % Band Neutrophils % Lymphocytes % Atypical Lymphs % Monocytes % Eosinophils % Basophils % Metamyelocytes % Myelocytes % Promyelocytes % Nucleated RBC % Absolute Neutrophils Absolute Lymphocytes Absolute Monocytes Absolute Eosinophils Absolute Basophils RBC Morphology Polychromasia PT INR VBG Lactate Sodium 133 L Potassium 3.9 Chloride 97 L Carbon Dioxide 28.9 Anion Gap 7.1 BUN 18 Creatinine 1.1 Est GFR (CKD-EPI 2020) 77.81 Glucose 150 H Calcium 8.8 Magnesium 2.0 Total Bilirubin 0.4 AST 89 H ALT 215 H Alkaline Phosphatase 91 C-Reactive Protein Total Protein 7.1 Albumin 2.2 L Urine Color Urine Clarity Urine pH Ur Specific [place] Urine Protein Urine Ketones Urine Blood Urine Nitrite Urine Bilirubin Urine Urobilinogen Ur Leukocyte Esterase Urine RBC Urine WBC Ur Epithelial Cells Urine Crystals Urine Bacteria Urine Mucus Ur Culture Indicated? Urine Glucose Serum Cryoglobulins Rheumatoid Factor REBECA Titer REBECA Titer 2 REBECA Titer 3 REBECA Cytoplasm Pattern REBECA Pattern REBECA Pattern 2 REBECA (Hep-2) REBECA Comment REBECA Interpretation Proteinase 3 (PR3) Myeloperoxidase Ab Sm (Felix) Antibody MOT[employer]LE EXAMINER Antibody B. divergens/MO-1 PCR Babesia duncani (PCR) Babesia microti DNA PCR Lyme Disease Antibody COVID-19 Source SARS-CoV-2 (PCR) E.chaffeensis DNA (PCR) E.ewingii/canis DNA PCR E.muris eauclairensis (PCR) Hepatitis A IgM Ab Hep Bs Antigen Hep B Core Total Ab Hepatitis C Antibody HIV 1&2 Ag/Ab, 4th Gen HIV 1&2 Antibody Rapid A. phagocytophilum (PCR) Blood B. miyamotoi (PCR) 01/11/23 21:44 Arm - Left Lower Wound Culture - Pending 01/11/23 22:20 Blood Blood Culture - Pending 01/11/23 21:55 Blood Blood Culture - Pending Preliminary micro results at discharge 01/11/23 21:44 Wound Culture - Pending Arm - Left Lower 01/11/23 22:20 Blood Culture - Pending Blood 01/11/23 21:55 Blood Culture - Pending Blood PFSH All Active Problems (Updated 01/12/23 @ 14:24 by Dinorah Moses, DO) Elevated C-reactive protein (CRP) (Acute) Fever (Acute) Normocytic anemia (Acute) Acute maculopapular rash (Acute) Bilateral inguinal hernia without obstruction or gangrene (Acute) AAA (abdominal aortic aneurysm) without rupture (Acute) 2.8 cm Smoker (Acute) Emphysema/COPD (Acute) mild 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 (Acute) GERD (gastroesophageal reflux disease) (Chronic) Hyperlipidemia (Acute) Non-insulin treated type 2 diabetes mellitus (Acute) Acute lactic acidosis (Acute) Skin necrosis (Acute) Abscess of left arm (Acute) Abscess of right hand (Acute) Erythematous rash (Acute) Hyponatremia (Acute) Elevated LFTs (Acute) Hypoalbuminemia (Acute) Elevated INR (Acute) Thrombocytopenia (Chronic) Acute respiratory failure with hypoxia (Acute) Surgical History (Updated 01/12/23 @ 12:19 by Ara Jo MD) No pertinent past surgical history Family History (Updated 01/12/23 @ 12:22 by Ara Jo MD) Maternal Aunt No problems noted. Paternal Aunt Diabetes Hypertension Paternal Aunt Diabetes Hypertension Paternal Aunt Diabetes Hypertension Mother Cancer unknown type Sister Breast cancer Social History (Updated 01/12/23 @ 12:23 by Ara Jo MD) Smoking/Tobacco Use Status: Current every day Tobacco Type: cigarettes Smoking packs per day: 1.5 Smoking cigarettes per day: 30.0 Years smoked: 44 Smoking pack-years: 66.00 Tobacco: How many years used: 44 Quit status: not considering quitting Counseling given: provider counseling and patient declined Smoking risk assessment performed?: Yes Alcohol Intake: current Alcohol Intake frequency: holidays/special occasions only Substance use type: does not use Housing: house Do you feel safe at home: Yes Do you feel safe in your relationship?: Yes Time Spent with Patient Time Spent with Patient: >85 minutes Time was spent: preparing to see the patient(eg.review tests), obtaining and/or reviewing separately otained hiistory, ordering medications,tests, procedures, referring, communicating with other health pharmacy customer care specialist, indepentently interpreting results, counseling the patient and care coordination
[2023-01-12 18:22] LABS: Absolute Monocyte Count 0.28 10^3/uL (0.1-0.8); HCT 32.6 % (40.0-50.0); HGB 10.9 g/dL (13.5-17.5); MCH 30.4 pg (27.0-33.0); MCHC 33.4 % (32.0-36.0); MCV 91 fL (80-95); MPV 10.3 fL (8.0-11.0); RBC 3.59 10^6/uL (4.36-5.78); RDW 14.6 % (11.8-14.1); RDW-SD 48.4 fL; WBC 9.48 10^3/uL (4.4-10.8)
[2023-01-12 18:34] LABS: ALT 176 U/L (16-63); AST 97 U/L (15-37); Albumin 1.9 g/dL (3.4-5.0); Alkaline Phosphatase 89 U/L (46-116); Anion Gap 9.3 mmol/L (3-11); BUN 15 mg/dL (7-18); Bilirubin, Total 0.4 mg/dL (0.2-1.0); CO2 25.7 mmol/L (21.0-32.0); Calcium 8.5 mg/dL (8.5-10.1); Chloride 98 mmol/L (98-107); Estimated GFR 87.24 (mL/min/1.73m2); Glucose 171 mg/dL (74-106); INR 1.5 (0.9-1.1); Potassium 4.1 mmol/L (3.5-5.1); Prothrombin Time 15.5 sec (9.3-11.0); Sodium 133 mmol/L (136-145); Total Protein 6.5 g/dL (6.4-8.2)
[2023-01-12 18:54] LABS: Absolute Lymphocyte Count 1.52 10^3/uL (1.2-3.4); Bands % 10; Platelet Count 42 10^3/uL (130-400)
[2023-01-12 18:55] LABS: Metamyelocytes % 2; Myelocytes % 7; Promyelocytes % 4
[2023-01-12 18:56] LABS: Absolute Neutrophil Count 6.45 10^3/uL (1.2-6.7); Diff Comment Manual Differential; Polychromasia Present
[2023-01-12 19:02] LABS: D-Dimer > 7500 ng/mlFEU (<500)
[2023-01-13 10:22] LABS: Lyme Ab w Rflx to Lyme Confirm Negative (Negative)
[2023-01-13 10:31] LABS: HIV-1/2 Ag & Ab Screen Negative (Negative)
[2023-01-13 13:47] LABS: ANA Interpretation Positive (Negative); ANA Titer Pattern 1:80 Speckled
[2023-01-13 14:15] LABS: RNP Ab, IgG 2.8 Units (<20.0); Sm (Smith) Ab, IgG 2.1 Units (<20.0)
[2023-01-13 17:48] LABS: Rheumatoid Factor 31.9 IU/mL (<12.0)
[2023-01-14 14:13] LABS: Hepatitis A Antibody IgM Negative (Negative); Hepatitis B Core Antibody Negative (Negative); Hepatitis B surface Ag Negative (Negative); Hepatitis C Ab w Rflx HCV PCR Negative (Negative)
[2023-01-14 18:09] LABS: Myeloperoxidase Ab IgG <0.2 U; Proteinase 3 Ab (PR3) <0.2 U
[2023-01-14 21:45] LABS: Anaplasma phagocytophilum Negative (Negative); B. miyamotoi PCR Negative (Negative); Babesia divergens/MO-1 Negative (Negative); Babesia duncani Negative (Negative); Babesia microti Negative (Negative); Ehrlichia chaffeensis Negative (Negative); Ehrlichia ewingii/canis Negative (Negative); Ehrlichia muris eauclairensis Negative (Negative)
== END 2023-01-12 20:40 | disposition short-term general hospital (02) ==
LOC: ER 23:29 → ICU 01-12 07:10
PROVIDERS: Surgery; Admitting Provider Surgery; Emergency Provider Emergency Medicine; PCP Registered Nurse; Visit Provider Surgery
DX: L73.8 Other specified follicular disorders (principal); J96.01 Acute respiratory failure with hypoxia; K75.81 Nonalcoholic steatohepatitis (NASH); K74.00 Hepatic fibrosis, unspecified; I71.40 Abdominal aortic aneurysm, without rupture, unspecified; K40.20 Bilateral inguinal hernia, without obstruction or gangrene, not specified as recurrent; E78.5 Hyperlipidemia, unspecified; E11.9 Type 2 diabetes mellitus without complications; K21.9 Gastro-esophageal reflux disease without esophagitis; D69.6 Thrombocytopenia, unspecified; R79.1 Abnormal coagulation profile; D64.9 Anemia, unspecified; R50.9 Fever, unspecified; E88.09 Other disorders of plasma-protein metabolism, not elsewhere classified; F17.210 Nicotine dependence, cigarettes, uncomplicated; R79.89 Other specified abnormal findings of blood chemistry; I96 Gangrene, not elsewhere classified; E87.20 Acidosis, unspecified; E87.1 Hypo-osmolality and hyponatremia; L02.414 Cutaneous abscess of left upper limb; L02.512 Cutaneous abscess of left hand
CPT/HCPCS: 11106; 11107; 36415; 71275; 74177; 80053; 86039; 86704; 86709; 86803; 87040; 87340; 87389; 87635; 87798; 96365; 96366; 96367; 96368; 99285; 71046; 73201; 81003; 81015; 82595; 83516; 83605; 83735; 85025; 85379; 85610; 86038; 86140; 86235; 86431; 86618; 87070; 87205; 88305; 88312; 99223; G0378; J0131; J2543; J3490